=== PATIENT | female | born 1995 | race Hispanic/Latino ===

== ENCOUNTER 2017-06-16 09:00 | Emergency (ER) | payer SELFPAY ==
--- NOTE | 2017-06-16 09:26 | ER ---
Nurse's Notes [facility] Name: Tejas Tomlinson Age: 21 yrs Sex: Female : 1995 Arrival Date: 06/16/2017 Time: 09: Bed 13 Private MD: Diagnosis: Otitis media, unspecified, left ear Presentation: 06/16 09:09 Presenting complaint: Patient states: has had left ear pain since Tuesday. Transition of iw care: patient was not received from another setting of care. Onset of symptoms was June 11, 2017. Care prior to arrival: None. 09:09 Method Of Arrival: Ambulatory iw 09:09 Acuity: JONATAN 5 iw Triage Assessment: 09:30 General: Appears in no apparent distress. Behavior is calm, cooperative. 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 - Social history:: Smoking status: Patient/guardian denies using tobacco. Screenin:30 Abuse screen: Denies threats or abuse. Denies injuries from another. Nutritional iw screening: No deficits noted. Tuberculosis screening: No symptoms or risk factors identified. Fall Risk None identified. Assessment: 09:33 EENT: Reports pain in left ear. iw 09:33 General: Appears in no apparent distress. Behavior is calm, cooperative. Pain: iw Complains of pain in left ear. Neuro: Level of Consciousness is awake, alert, obeys commands, Oriented to person, place, time, situation, Moves all extremities. Full function. Respiratory: Respiratory effort is even, unlabored, Respiratory pattern is regular, symmetrical. Derm: Skin is pink, warm \T\ dry. normal. Vital Signs: 09:09 BP 144 / 99; Pulse 85; Resp 16; Temp 98.2; Pulse Ox 100% on R/A; Weight 136.53 kg; iw Height 5 ft. 2 in. (157.48 cm); Pain 10/10; 09:09 Body Mass Index 55.05 (136.53 kg, 157.48 cm) iw ED Course: 09:01 Patient arrived in ED. as 09:05 Terra Sparks FNP-C is [facility]. kb 09:05 Anthony Chester MD is Attending Physician. kb 09: Rosa Freitas, RN is Primary Nurse. iw 09: Triage completed. iw 09:30 Patient has correct armband on for positive identification. iw 09:30 No provider procedures requiring assistance completed. Patient did not have IV access iw during this emergency room visit. :33 Arm band placed on. iw Administered Medications: No medications were administered Outcome: : Discharge ordered by . kb :33 Discharged to home ambulatory. iw :33 Condition: good :33 Discharge instructions given to patient, Instructed on discharge instructions, follow up and referral plans. medication usage, Demonstrated understanding of instructions, follow-up care, medications, Prescriptions given X 1. :33 Patient left the ED. iw Signatures: Terra Sparks FNP-C SUPERINTENDENT [employer]-Ajayb Mercedes Hill as Rosa Freitas, RN RN iw Corrections: (The following items were deleted from the chart) 09:13 09:09 Pulse 85bpm; Resp 16bpm; Pulse Ox 100% RA; Temp 98.2F; 136.53 kg; Height 5 ft. 2 iw in.; BMI: 55.0; Pain 10/10; iw 11:24 09:33 EENT: No deficits noted. iw iw
--- NOTE | 2017-06-16 09:26 | EDPHYS ---
Physician Documentation [facility] Name: Tejas Tomlinson Age: 21 yrs Sex: Female : 1995 Arrival Date: 06/16/2017 Time: 09:01 Bed 13 Private MD: ED Physician Anthony Chester HPI: 06/16 09:22 This 21 yrs old Female presents to ER via Ambulatory with complaints of Ear kb Pain. 09:22 The patient presents with pain, that is acute. The complaints affect the right ear and kb left ear. Onset: The symptoms/episode began/occurred 7 day(s) ago. Modifying factors: The symptoms are alleviated by nothing, the symptoms are aggravated by touching. Associated signs and symptoms: The patient has no apparent associated signs or symptoms. Severity of symptoms: At their worst the symptoms were mild moderate in the emergency department the symptoms are unchanged. The patient has not experienced similar symptoms in the past. The patient has not recently seen a physician. 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 - Social history:: Smoking status: Patient/guardian denies using tobacco. ROS: 09:21 Constitutional: Negative for fever, chills, and weight loss, Cardiovascular: Negative kb for chest pain, palpitations, and edema, Respiratory: Negative for shortness of breath, cough, wheezing, and pleuritic chest pain, Abdomen/GI: Negative for abdominal pain, nausea, vomiting, diarrhea, and constipation, MS/Extremity: Negative for injury and deformity, Skin: Negative for injury, rash, and discoloration, Neuro: Negative for headache, weakness, numbness, tingling, and seizure. 09:21 ENT: Positive for ear pain. Exam: 09:21 Constitutional: This is a well developed, well nourished patient who is awake, alert, kb and in no acute distress. Head/Face: Normocephalic, atraumatic. Neck: Trachea midline, no thyromegaly or masses palpated, and no cervical lymphadenopathy. Supple, full range of motion without nuchal rigidity, or vertebral point tenderness. No Meningismus. Chest/axilla: Normal chest wall appearance and motion. Nontender with no deformity. No lesions are appreciated. Cardiovascular: Regular rate and rhythm with a normal S1 and S2. No gallops, murmurs, or rubs. Normal PMI, no JVD. No pulse deficits. Respiratory: Lungs have equal breath sounds bilaterally, clear to auscultation and percussion. No rales, rhonchi or wheezes noted. No increased work of breathing, no retractions or nasal flaring. Abdomen/GI: Soft, non-tender, with normal bowel sounds. No distension or tympany. No guarding or rebound. No evidence of tenderness throughout. Skin: Warm, dry with normal turgor. Normal color with no rashes, no lesions, and no evidence of cellulitis. MS/ Extremity: Pulses equal, no cyanosis. Neurovascular intact. Full, normal range of motion. Neuro: Awake and alert, GCS 15, oriented to person, place, time, and situation. Cranial nerves II-XII grossly intact. Motor strength 5/5 in all extremities. Sensory grossly intact. Cerebellar exam normal. Normal gait. 09:21 ENT: External ear(s): pain with movement, that is moderate, of the pinna of left ear and left ear lobe, Ear canal(s): are normal, TM's: bulging, on the left, erythema, that is moderate, on the left, Examination of the other ear shows no obvious abnormality, Nose: is normal, Mouth: is normal, Posterior pharynx: is normal. Vital Signs: 09:09 BP 144 / 99; Pulse 85; Resp 16; Temp 98.2; Pulse Ox 100% on R/A; Weight 136.53 kg; iw Height 5 ft. 2 in. (157.48 cm); Pain 10/10; 09:09 Body Mass Index 55.05 (136.53 kg, 157.48 cm) iw MDM: 09:05 Patient medically screened. kb 09:22 Data reviewed: vital signs, nurses notes. Data interpreted: Pulse oximetry: on room air kb is 100 %. Interpretation: normal. Counseling: I had a detailed discussion with the patient and/or guardian regarding: the historical points, exam findings, and any diagnostic results supporting the discharge/admit diagnosis, the need for outpatient follow up, a family practitioner, to return to the emergency department if symptoms worsen or persist or if there are any questions or concerns that arise at home. Administered Medications: No medications were administered Disposition: 06/17 07:48 Co-signature as Attending Physician, Anthony Chester MD I agree with the assessment and mo plan of care. Disposition: 06/16/17 09:25 Discharged to Home. Impression: Otitis media, unspecified, left ear. - Condition is Stable. - Discharge Instructions: Otitis Media, Adult, [id number]. - Prescriptions for Zithromax Z- Wilfredo 250 mg Oral Tablet - take 1 tablet by ORAL route as directed for 5 days Day 1 - take two (2) tablets one time. Day 2, 3, 4 , 5 take one (1) tablet once daily.; 6 tablet. - Medication Reconciliation Form, Thank You Letter, Antibiotic Education, Prescription Opioid Use form. - Follow up: Emergency Department; When: As needed; Reason: Worsening of condition. Follow up: Private Physician; When: 2 - 3 days; Reason: Recheck today's complaints, Continuance of care, Re-evaluation by your physician. Signatures: Terra Sparks, LAMAR-C LAMAR-Rosa Godoy RN RN iw [place], William, MD MD wa
[2017-06-16 09:37] VITALS: BP 144/99; TEMP 98.2; O2SAT 100
== END 2017-06-16 09:33 | disposition home or self-care (01) ==
LOC: ER 09:00
DX: H66.92 Otitis media, unspecified, left ear (principal); Z88.1 Allergy status to other antibiotic agents; Z88.3 Allergy status to other anti-infective agents
CPT/HCPCS: 99282

== ENCOUNTER 2017-08-02 08:50 | Emergency (ER) | payer SELFPAY ==
[2017-08-02 09:57] LABS: Absolute Lymphocytes (CBC) 3.1 K/uL (0.7-4.9); Absolute Monocytes 0.4 K/uL (0.1-1.3); Absolute Neutrophil 5.1 K/uL (1.8-8.0); BUN Blood Urea Nitrogen 7 mg/dL (6-20); Basophils % 0.6 % (0-1.3); Bicarbonate 24 mEq/L (21-31); Glucose Level 114 mg/dL (65-120); Lymphocytes % 35.3 % (15.3-44.8); MCH 25.6 pg (27.0-35.0); MCV 79.9 fL (80-100); MPV 10.6 fL (7.6-11.3); Monocytes % 4.9 % (3.3-12.3); Potassium 4.1 mEq/L (3.6-5.0); RBC Red Blood Cell Count 4.88 M/uL (3.86-4.86); Sodium Level 135 mEq/L (135-145)
--- NOTE | 2017-08-02 10:32 | RAD REPORT ---
EXAM DESCRIPTION: RAD - Chest Pa And Lat (2 Views) - 08/02/2017 9:54 am CLINICAL HISTORY: Right-sided chest and breast pain COMPARISON: January 2016 TECHNIQUE: PA and lateral views of the chest were obtained. Abdominal shielding utilized FINDINGS: The lungs are underinflated. No peripheral mass or consolidation. On the lateral view ther e is questionable increased opacification anterior base. This could be lingula or right middle lobe. Probability of pneumonia is felt to be low given the history of upper right chest pain. No abnormalit y seen on frontal projection. Heart size and vasculature within normal limits. Trachea is midline. Heart size is similar to compar melba. No pleural effusion or pneumothorax seen. No acute bony finding noted. No aortic abnormality. IMPRESSION: No definitive pneumonia and no failure, volume overload or other acute cardiopulmonary f inding. Subtle increased opacification anterior lung base on the lateral view is suspected to be summation artifact rather than anterior base pneumonia.
[2017-08-02 11:52] LABS: Urine Blood 3+ (NEG); Urine Glucose NEGATIVE (NEG); Urine Protein TRACE (NEG); Urine pH 6.5 (5.0-7.0)
--- NOTE | 2017-08-02 12:22 | RAD REPORT ---
EXAM DESCRIPTION: CT - Chest For Pe Angio - 08/02/2017 12:08 pm CLINICAL HISTORY: Chest pain, shortness of breath COMPARISON: Chest exam same date TECHNIQUE: Dynamically enhanced 3 mm thick images of the chest were obtained during administration o f approximately 150mL Isovue 370 IV contrast. Coronal and oblique reconstruction images were generate d and reviewed. Exam utilizes a protocol to evaluate the pulmonary arterial tree. All CT scans are performed using dose optimization technique as appropriate and may include automated exposure control or mA/KV adjustment according to patient size. FINDINGS: No pulmonary emboli are identified. The aorta as imaged shows no acute or suspicious finding. No pericardial thickening or effusion. No infiltrate or mass in the lung parenchyma. The subtle anterior lung base density seen on plain karie m was in fact a summation artifact. There is no pneumonia or acute lung parenchymal process. No pleur al effusion or pleural thickening. No mediastinal or hilar suspicious masses. No chest wall masses or abnormal axillary lymphadenopathy. IMPRESSION: No pulmonary emboli identified. No other significant or suspicious findings.
--- NOTE | 2017-08-02 12:31 | EDPHYS ---
Physician Documentation [facility] Name: Tejas Tomlinson Age: 21 yrs Sex: Female : 1995 Arrival Date: 08/02/2017 Time: 08:55 Bed 14 Private MD: None, None ED Physician Tomasz Romero HPI: 08/02 16:57 This 21 yrs old Female presents to ER via Ambulatory with complaints of Right gs side pain and numbness. 16:57 The patient or guardian reports chest pain that is located primarily in the anterior gs chest wall, right. The pain radiates to Associated signs and symptoms: Pertinent positives: shortness of breath, tingling r forearm dorsal lateral. The chest pain is described as sharp. Duration: The patient or guardian reports multiple episodes, that wax and wane, with no pattern. Modifying factors: the symptoms are aggravated by deep breath. Severity of pain: At its worst the pain was moderate in the emergency department the pain is unchanged. 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 - Social history:: Smoking status: Patient/guardian denies using tobacco. - Ebola Screening: : Patient negative for fever greater than or equal to 101.5 degrees Fahrenheit, and additional compatible Ebola Virus Disease symptoms. ROS: 16:57 All other systems are negative. gs Exam: 16:57 Head/Face: Normocephalic, atraumatic. Eyes: Pupils equal round and reactive to light, gs extra-ocular motions intact. Lids and lashes normal. Conjunctiva and sclera are non-icteric and not injected. Cornea within normal limits. Periorbital areas with no swelling, redness, or edema. ENT: Nares patent. No nasal discharge, no septal abnormalities noted. Tympanic membranes are normal and external auditory canals are clear. Oropharynx with no redness, swelling, or masses, exudates, or evidence of obstruction, uvula midline. Mucous membranes moist. Neck: Trachea midline, no thyromegaly or masses palpated, and no cervical lymphadenopathy. Supple, full range of motion without nuchal rigidity, or vertebral point tenderness. No Meningismus. Chest/axilla: Normal chest wall appearance and motion. Nontender with no deformity. No lesions are appreciated. Cardiovascular: Regular rate and rhythm with a normal S1 and S2. No gallops, murmurs, or rubs. Normal PMI, no JVD. No pulse deficits. Respiratory: Lungs have equal breath sounds bilaterally, clear to auscultation and percussion. No rales, rhonchi or wheezes noted. No increased work of breathing, no retractions or nasal flaring. Abdomen/GI: Soft, non-tender, with normal bowel sounds. No distension or tympany. No guarding or rebound. No evidence of tenderness throughout. Back: No spinal tenderness. No costovertebral tenderness. Full range of motion. Skin: Warm, dry with normal turgor. Normal color with no rashes, no lesions, and no evidence of cellulitis. MS/ Extremity: Pulses equal, no cyanosis. Neurovascular intact. Full, normal range of motion. 16:57 Constitutional: The patient appears alert, awake. 16:57 Neuro: Mentation: is normal, Cranial nerves: grossly normal, Cerebellar function: is grossly normal, Motor: is normal, Sensation: pin prick is decreased in the dorsal aspect of right forearm. Vital Signs: 09:02 BP 148 / 96; Pulse 77; Resp 16; Temp 98.1; Pulse Ox 100% on R/A; Weight 138.35 kg; hb Height 5 ft. 2 in. (157.48 cm); Pain 8/10; 10:00 BP 146 / 91; Pulse 78; Resp 18; Pulse Ox 99% on R/A; rb1 11:00 BP 143 / 89; Pulse 80; Resp 19; Pulse Ox 100% on R/A; rb1 12:00 rb1 13:00 BP 136 / 87; Pulse 82; Resp 17; Pulse Ox 99% on R/A; rb1 09:02 Body Mass Index 55.78 (138.35 kg, 157.48 cm) hb 12:[address] rb1 MDM: 09:14 Patient medically screened. 16:57 Differential diagnosis: pleurisy, pulmonary embolus, cerv radiculopathy, neuropathy. Data reviewed: vital signs, nurses notes. 08/02 09:16 Order name: CBC with Diff; Complete Time: 10:13 08/02 09:16 Order name: Basic Metabolic Panel; Complete Time: 10:13 08/02 09:16 Order name: XRAY Chest Pa And Lat (2 Views); Complete Time: 10:44 08/02 09:16 Order name: D-Dimer; Complete Time: 10:13 08/02 11:18 Order name: Urine Dipstick--Ancillary (enter results); Complete Time: 12:01 08/02 11:18 Order name: Urine --Ancillary (enter results); Complete Time: 12:01 08/02 09:16 Order name: EKG; Complete Time: 09:17 08/02 09:16 Order name: EKG - Nurse/Tech; Complete Time: 11:38 08/02 09:16 Order name: Urine Test (obtain specimen); Complete Time: 11:11 08/02 11:39 Order name: Chest For Pe Angio; Complete Time: 12:27 EDMS Administered Medications: No medications were administered Disposition: 08/02/17 12:30 Discharged to Home. Impression: Chest pain, unspecified, Paresthesia of skin. - Condition is Stable. - Discharge Instructions: Nonspecific Chest Pain, Paresthesia. - Work release form, Medication Reconciliation Form, Thank You Letter, Antibiotic Education, Prescription Opioid Use form. - Follow up: Private Physician; When: 2 - 3 days; Reason: Re-evaluation by your physician. Signatures: Dispatcher [employer] [facility] Carmencita Sung RN RN rb1 Bridgette Marie RN RN Tomasz Romero MD MD Corrections: (The following items were deleted from the chart) 11:38 10:45 Chest Angio+CT.RAD.BRZ ordered. [facility] 13:25 12:30 08/02/2017 12:30 Discharged to Home. Impression: Chest pain, unspecified; rb1 Paresthesia of skin. Condition is Stable. Forms are Medication Reconciliation Form, Thank You Letter, Antibiotic Education, Prescription Opioid Use. Follow up: Private Physician; When: 2 - 3 days; Reason: Re-evaluation by your physician.
--- NOTE | 2017-08-02 12:31 | ER ---
Nurse's Notes [facility] Name: Tejas Tomlinson Age: 21 yrs Sex: Female : 1995 Arrival Date: 08/02/2017 Time: 08:55 Bed 14 Private MD: None, None Diagnosis: Chest pain, unspecified;Paresthesia of skin Presentation: 08/02 08:59 Presenting complaint: Patient states: Last night I had a pain that started in my right hb upper chest and it radiates down into my right breast, then this morning my right arm and right right leg feel numb. - facial droop, - slurred speech, bilateral market master strong and equal. Ambulated to triage with steady gait. Transition of care: patient was not received from another setting of care. Onset of symptoms was August 01, 2017 at 19:30. Care prior to arrival: None. 08:59 Method Of Arrival: Ambulatory hb 08:59 Acuity: JONATAN 3 hb 09:05 Risk Assessment: Do you want to hurt yourself or someone else? Patient reports no rb1 desire to harm self or others. Initial Sepsis Screen: Does the patient meet any 2 criteria? No. Patient's initial sepsis screen is negative. Does the patient have a suspected source of infection? No. Patient's initial sepsis screen is negative. 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 - Social history:: Smoking status: Patient/guardian denies using tobacco. - Ebola Screening: : Patient negative for fever greater than or equal to 101.5 degrees Fahrenheit, and additional compatible Ebola Virus Disease symptoms. Screenin:05 Abuse screen: Denies threats or abuse. Nutritional screening: No deficits noted. rb1 Tuberculosis screening: No symptoms or risk factors identified. Fall Risk None identified. Assessment: 09:05 General: Appears in no apparent distress. comfortable, obese, Behavior is calm, rb1 cooperative, Denies fever. Pain: Complains of pain in anterior aspect of right upper chest Pain currently is 8 out of 10 on a pain scale. Neuro: Level of Consciousness is awake, alert, obeys commands, Oriented to person, place, time, situation, Reports numbness in right arm. Neuro: Benzene Worker are equal bilaterally Moves all extremities. Gait is steady, Speech is normal, Facial symmetry appears normal, Pupils are PERRLA. Cardiovascular: Capillary refill < 3 seconds is brisk in bilateral fingers. Respiratory: Airway is patent Respiratory effort is even, unlabored, Respiratory pattern is regular, symmetrical. GI: No signs and/or symptoms were reported involving the gastrointestinal system. : No signs and/or symptoms were reported regarding the genitourinary system. Derm: Skin is pink, warm \T\ dry. Musculoskeletal: Range of motion: intact in all extremities. 10:00 Reassessment: Patient appears in no apparent distress at this time. No changes from rb1 previously documented assessment. Family at bedside. 11:00 Reassessment: Patient appears in no apparent distress at this time. Patient and/or rb1 family updated on plan of care and expected duration. Pain level reassessed. Patient is alert, oriented x 3, equal unlabored respirations, skin warm/dry/pink. Pt. was updated on POC. 11:41 Reassessment: KRYSTA Escalante went to CT to start a new IV. rb1 12:09 Reassessment: Patient appears in no apparent distress at this time. Patient and/or rb1 family updated on plan of care and expected duration. Pain level reassessed. Patient is alert, oriented x 3, equal unlabored respirations, skin warm/dry/pink. 13:00 Reassessment: Patient appears in no apparent distress at this time. No changes from rb1 previously documented assessment. Family at bedside. Vital Signs: 09:02 BP 148 / 96; Pulse 77; Resp 16; Temp 98.1; Pulse Ox 100% on R/A; Weight 138.35 kg; hb Height 5 ft. 2 in. (157.48 cm); Pain 8/10; 10:00 BP 146 / 91; Pulse 78; Resp 18; Pulse Ox 99% on R/A; rb1 11:00 BP 143 / 89; Pulse 80; Resp 19; Pulse Ox 100% on R/A; rb1 12:00 rb1 13:00 BP 136 / 87; Pulse 82; Resp 17; Pulse Ox 99% on R/A; rb1 09:02 Body Mass Index 55.78 (138.35 kg, 157.48 cm) hb 12:[address] [facility] ED Course: 08:55 Patient arrived in ED. sb2 08:56 None, None is Private Physician. sb2 09:02 Triage completed. hb 09:02 Arm band placed on right wrist. hb 09:04 Tomasz Romero MD is Attending Physician. gs 09:05 Patient has correct armband on for positive identification. Placed in gown. Bed in low rb1 position. Call light in reach. Side rails up X 1. Adult w/ patient. Pulse ox on. NIBP on. 09:25 Carmencita Sung, RN is Primary Nurse. rb1 09:35 Inserted saline lock: 22 gauge in left forearm, using aseptic technique. ,using aseptic rb1 technique. IV inserted by ESTELLE Bailey Blood collected. 09:45 Patient moved to radiology via wheelchair. jb2 09:51 X-ray completed. Patient tolerated procedure well. Patient moved back from radiology. jb2 09:51 XRAY Chest Pa And Lat (2 Views) In Process Unspecified. EDMS 10:14 EKG done, by environmental health technician. reviewed by Tomasz Romero MD. tc 11:10 Urine collected: clean catch specimen, cloudy, tin colored. dh3 11:53 Inserted saline lock: 20 gauge in left antecubital area, using aseptic technique. ss 12:08 Chest For Pe Angio In Process Unspecified. EDMS 13:24 No provider procedures requiring assistance completed. IV discontinued, intact, rb1 bleeding controlled, No redness/swelling at site. Pressure dressing applied. Administered Medications: No medications were administered Outcome: 12:30 Discharge ordered by . 13:24 Discharged to home ambulatory, with family. rb1 13:24 Condition: stable 13:24 Discharge instructions given to patient, Instructed on discharge instructions, follow up and referral plans. Demonstrated understanding of instructions, follow-up care, Prescriptions given X none 13:25 Patient left the ED. rb1 Signatures: Dispatcher [employer] EDMS Yuri Villaseñor jb2 Ava Sinclair RN RN Mónica Carranza, soda column operator EKG Ttc Carmencita Sung, ESTELLE MCCABE rb1 Bridgette Marie RN RN Rich, Antonietta 3 Tomasz Romero MD MD Pamela Eldridge sb2
[2017-08-02 13:29] VITALS: TEMP 98.1
[2017-08-02 13:33] VITALS: BP 136/87; O2SAT 99
--- NOTE | 2017-08-02 15:01 | EKG ---
Test Date: 2017-08-02 Test Time: 10:06:37 Autocad: SHOLA/ MEASUREMENT RESULTS: Intervals: Rate: 72 KS: 134 QRSD: 76 QT: 386 QTc: 422 [place]: P: 23 KS: 134 QRS: 56 T: 5 INTERPRETIVE STATEMENTS: Normal sinus rhythm Normal ECG Compared to ECG 06/11/2010 21:41:54 No significant changes Electronically Signed On 08-02-17 14:59:03 CDT by Kofi Cornell
== END 2017-08-02 13:25 | disposition home or self-care (01) ==
LOC: ER 08:50
DX: R20.2 Paresthesia of skin (principal); Z88.1 Allergy status to other antibiotic agents
CPT/HCPCS: 36415; 71046; 71275; 80048; 81003; 81025; 85025; 85379; 93005; 99284; Q9967

== ENCOUNTER 2017-08-14 23:28 | Emergency (ER) | payer SELFPAY ==
[2017-08-14] MEDS ORDERED: ACETAMINOPHEN 500 MG TAB ONE (23:59)
[2017-08-14] MEDS ORDERED: NA CHLORIDE 0.9% 1,000 ML ONE (23:59)
[2017-08-15] MEDS ORDERED: ONDANSETRON 4 MG/2 ML VIAL ONE (00:01)
[2017-08-15 00:59] LABS: Absolute Lymphocytes (CBC) 2.1 K/uL (0.7-4.9); Absolute Monocytes 0.7 K/uL (0.1-1.3); Absolute Neutrophil 9.8 K/uL (1.8-8.0); Basophils % 0.3 % (0-1.3); Eosinophils % 0.2 % (0-4.4); Hematocrit 37.3 % (36.0-45.0); Lymphocytes % 16.3 % (15.3-44.8); MCH 25.7 pg (27.0-35.0); MCV 80.1 fL (80-100); MPV 10.2 fL (7.6-11.3); Monocytes % 5.3 % (3.3-12.3); RBC Red Blood Cell Count 4.66 M/uL (3.86-4.86)
[2017-08-15 01:13] LABS: Potassium 3.6 mEq/L (3.6-5.0)
--- NOTE | 2017-08-15 02:02 | EDPHYS ---
Physician Documentation [facility] Name: Tejas Tomlinson Age: 21 yrs Sex: Female : 1995 Arrival Date: 08/14/2017 Time: 23:29 Bed 30 Private MD: ED Physician Tenzin Castillo HPI: 08/14 23:52 This 21 yrs old Female presents to ER via Ambulatory with complaints of Fever. pkl 23:52 The patient presents with sore throat. The patient describes throat pain as constant. pkl Onset: The symptoms/episode began/occurred 4 day(s) ago. Associated signs and symptoms: Pertinent positives: fever, nausea, vomiting. 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 - Social history:: Smoking status: Patient/guardian denies using tobacco. - Ebola Screening: : Patient denies exposure to infectious person Patient denies travel to an Ebola-affected area in the 21 days before illness onset. ROS: 23:52 Eyes: Negative for injury, pain, redness, and discharge. pkl 23:52 ENT: Positive for sore throat. 23:52 Neck: Negative for stiffness. 23:52 Cardiovascular: Negative for chest pain. 23:52 Respiratory: Positive for cough, Negative for shortness of breath. 23:52 Abdomen/GI: Positive for nausea and vomiting. 23:52 Back: Negative for acute changes. 23:52 : Negative for urinary symptoms. 23:52 MS/extremity: Negative for acute changes. 23:52 Skin: Negative for rash. 23:52 Neuro: Positive for 23:52 Neuro: Negative for altered mental status. Exam: 23:52 Head/Face: Normocephalic, atraumatic. Eyes: Pupils equal round and reactive to light, pkl extra-ocular motions intact. Lids and lashes normal. Conjunctiva and sclera are non-icteric and not injected. Cornea within normal limits. Periorbital areas with no swelling, redness, or edema. 23:52 ENT: Posterior pharynx: Tonsils: bilaterally enlarged, with exudate. 23:52 Neck: Exam negative for nuchal rigidity. 23:52 Chest/axilla: Exam negative for acute changes. 23:52 Cardiovascular: Rate: tachycardic, actual rate is 123 bpm, Rhythm: regular. 23:52 Respiratory: the patient does not display signs of respiratory distress, Respirations: normal, Breath sounds: are clear throughout. 23:52 Abdomen/GI: Bowel sounds: normal, Palpation: abdomen is soft and non-tender, in all quadrants. 23:52 Back: Exam negative for acute changes. 23:52 : Exam negative for acute changes. 23:52 Musculoskeletal/extremity: Exam is negative for acute changes. 23:52 Skin: Exam negative for rash. 23:52 Neuro: Orientation: is normal, Mentation: is normal, Cranial nerves: grossly normal, Motor: is normal. Vital Signs: 23:43 BP 143 / 88; Pulse 123; Resp 20; Temp 101.0(O); Pulse Ox 97% on R/A; Weight 136.08 kg aa1 (R); Height 5 ft. 2 in. (157.48 cm); Pain 12/14; 08/15 00:45 BP 144 / 74; Pulse 94; Resp 18; Pulse Ox 98% on R/A; rk2 02:13 BP 126 / 90; Pulse 85; Resp 17; Temp 99.1(O); Pulse Ox 99% on R/A; rk2 08/14 23:43 Body Mass Index 54.87 (136.08 kg, 157.48 cm) aa1 MDM: 08/14 23:31 Patient medically screened. pkl 08/15 02:00 Data reviewed: vital signs, nurses notes, lab test result(s). pkl 08/14 23:51 Order name: CBC with Diff; Complete Time: 01:14 pkl 08/14 23:51 Order name: Chem 7; Complete Time: 01:15 pkl 08/14 23:51 Order name: Strep; Complete Time: 01:14 pkl 08/15 01:08 Order name: Throat Culture EDSD 08/15 01:15 Order name: [place] Screen Profile; Complete Time: 01:59 pkl Administered Medications: 00:11 Drug: Tylenol 1000 mg Route: PO; rk2 00:50 Follow up: Response: No adverse reaction rk2 00:12 Drug: NS 0.9% 1000 ml Route: IV; Rate: 1000 ml; Site: right antecubital; rk2 01:00 Follow up: Response: No adverse reaction; IV Status: Completed infusion rk2 00:12 Drug: Zofran 4 mg Route: IVP; Site: right antecubital; rk2 00:50 Follow up: Response: No adverse reaction rk2 02:08 Drug: Clindamycin 900 mg Route: IVPB; Infused Over: 30 mins; Site: right antecubital; rk2 02:34 Follow up: Response: No adverse reaction; IV Status: Completed infusion rk2 Disposition: 08/15/17 02:02 Discharged to Home. Impression: Acute tonsillitis. R/O right tonsillar abscess. - Condition is Stable. - Prescriptions for Clindamycin HCl 300 mg Oral Capsule - take 1 capsule by ORAL route every 6 hours for 7 days; 28 capsule. - Medication Reconciliation Form, Thank You Letter, Antibiotic Education, Prescription Opioid Use form. - Follow up: Mandy Villanueva MD; When: 1 - 2 days; Reason: Re-evaluation by your physician. - Problem is new. - Symptoms are unchanged. Signatures: Dispatcher [employer] EDMS Yaima Westfall RN RN aa1 Tenzin Castillo MD MD pkl Monalisa Clancy RN RN rk2 Corrections: (The following items were deleted from the chart) 02:35 02:02 08/15/2017 02:02 Discharged to Home. Impression: Acute tonsillitis. R/O right rk2 tonsillar abscess. Condition is Stable. Forms are Medication Reconciliation Form, Thank You Letter, Antibiotic Education, Prescription Opioid Use. Follow up: Mandy Villanueva; When: 1 - 2 days; Reason: Re-evaluation by your physician. Problem is new. Symptoms are unchanged. pkl
--- NOTE | 2017-08-15 02:02 | ER ---
Nurse's Notes [facility] Name: Tejas Tomlinson Age: 21 yrs Sex: Female : 1995 Arrival Date: 08/14/2017 Time: 23:29 Bed 30 Private MD: Diagnosis: Acute tonsillitis. R/O right tonsillar abscess Presentation: 08/14 23:42 Presenting complaint: Patient states: fever, sore throat, \T\ N/V x 4 days. Transition of aa1 care: patient was not received from another setting of care. Onset of symptoms was August 11, 2017. Risk Assessment: Do you want to hurt yourself or someone else? Patient reports no desire to harm self or others. Initial Sepsis Screen: Does the patient meet any 2 criteria? Yes Does the patient have a suspected source of infection? No. Patient's initial sepsis screen is negative. Care prior to arrival: None. 23:42 Method Of Arrival: Ambulatory aa1 23:42 Acuity: JONATAN 3 aa1 Triage Assessment: 23:43 General: Appears in no apparent distress. comfortable, Behavior is calm, cooperative, aa1 appropriate for age. 08/15 00:00 Pain: Complains of pain in throat. rk2 00:00 EENT: Throat is reddened. Neuro: Level of Consciousness is alert, obeys commands, rk2 Oriented to person, place, time, situation. Respiratory: No deficits noted. Airway is patent Respiratory effort is even, unlabored, Respiratory pattern is regular, symmetrical. Derm: Skin is pink, warm \T\ dry. 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 - Social history:: Smoking status: Patient/guardian denies using tobacco. - Ebola Screening: : Patient denies exposure to infectious person Patient denies travel to an Ebola-affected area in the 21 days before illness onset. Screenin/11 00:00 Abuse screen: Denies threats or abuse. rk2 00:00 Nutritional screening: No deficits noted. Tuberculosis screening: No symptoms or risk rk2 factors identified. Fall Risk None identified. Assessment: 01:31 Reassessment: Patient appears in no apparent distress at this time. No changes from rk2 previously documented assessment. Patient and/or family updated on plan of care and expected duration. Pain level reassessed. No needs voiced \T\ this time. Vital Signs: 08/14 23:43 BP 143 / 88; Pulse 123; Resp 20; Temp 101.0(O); Pulse Ox 97% on R/A; Weight 136.08 kg aa1 (R); Height 5 ft. 2 in. (157.48 cm); Pain 12/14; 08/15 00:45 BP 144 / 74; Pulse 94; Resp 18; Pulse Ox 98% on R/A; rk2 02:13 BP 126 / 90; Pulse 85; Resp 17; Temp 99.1(O); Pulse Ox 99% on R/A; rk2 08/14 23:43 Body Mass Index 54.87 (136.08 kg, 157.48 cm) aa1 ED Course: 08/14 23:29 Patient arrived in ED. ds1 23:31 Tenzin Castillo MD is Attending Physician. pkl 23:43 Triage completed. aa1 23:43 Arm band placed on right wrist. Patient placed in an exam room, on a stretcher. aa1 23:46 Monalisa Clancy, ESTELLE is Primary Nurse. rk2 08/15 00:00 Patient has correct armband on for positive identification. Bed in low position. Call rk2 light in reach. 01:30 [place] Screen Profile Sent. rk2 02:01 Mandy Villanueva MD is Referral Physician. pkl 02:35 No provider procedures requiring assistance completed. IV discontinued. rk2 Administered Medications: 00:11 Drug: Tylenol 1000 mg Route: PO; rk2 00:50 Follow up: Response: No adverse reaction rk2 00:12 Drug: NS 0.9% 1000 ml Route: IV; Rate: 1000 ml; Site: right antecubital; rk2 01:00 Follow up: Response: No adverse reaction; IV Status: Completed infusion rk2 00:12 Drug: Zofran 4 mg Route: IVP; Site: right antecubital; rk2 00:50 Follow up: Response: No adverse reaction rk2 02:08 Drug: Clindamycin 900 mg Route: IVPB; Infused Over: 30 mins; Site: right antecubital; rk2 02:34 Follow up: Response: No adverse reaction; IV Status: Completed infusion rk2 Outcome: 02:02 Discharge ordered by . jb 02:35 Discharged to home ambulatory. rk2 02:35 Condition: good 02:35 Discharge instructions given to patient, Prescriptions given X 1. 02:35 Patient left the ED. rk2 Signatures: Yaima Westfall RN RN aa1 Tenzin Castillo MD MD pkJacki Yang ds1 Monalisa Clancy RN RN rk2
[2017-08-15] MEDS ORDERED: CLINDAMYCIN 900MG/D5W 900 MG/50 ML BAG IV ONE (02:06)
[2017-08-15 03:04] VITALS: BP 126/90; TEMP 99.1; O2SAT 99
== END 2017-08-15 02:35 | disposition home or self-care (01) ==
LOC: ER 23:28
DX: J03.90 Acute tonsillitis, unspecified (principal); Z88.1 Allergy status to other antibiotic agents
CPT/HCPCS: 36415; 80048; 85025; 86308; 87070; 87081; 96361; 96365; 96375; 99283; J2405; J7030

== ENCOUNTER 2017-11-22 19:11 | Emergency (ER) | payer SELFPAY ==
[2017-11-22 19:53] LABS: Urine Blood NEGATIVE (NEG); Urine Glucose NEGATIVE (NEG); Urine Protein NEGATIVE (NEG); Urine Specific Gravity 1.025 (1.005-1.030)
--- NOTE | 2017-11-22 20:20 | RAD REPORT ---
EXAM DESCRIPTION: RAD - Chest Pa And Lat (2 Views) - 11/22/2017 8:10 pm CLINICAL HISTORY: Cough, fever COMPARISON: August 02 TECHNIQUE: PA and lateral views of the chest were obtained. FINDINGS: The lungs are underinflated. No acute lung parenchymal finding. No failure or volume overl oad. Heart size is normal and central vasculature is within normal limits. No pleural effusion or pneumothorax seen. No acute bony finding noted. No aortic abnormality. IMPRESSION: No acute cardiopulmonary process. No significant change from comparison.
--- NOTE | 2017-11-22 21:05 | EDPHYS ---
Physician Documentation [facility] Name: Tejas Tomlinson Age: 22 yrs Sex: Female : 1995 Arrival Date: 11/22/2017 Time: 19:12 Bed 27 Private MD: ED Physician Fabio Davalos HPI: 11/23 04:29 This 22 yrs old Female presents to ER via Ambulatory with complaints of Sore pm1 Throat, cough. 04:29 The patient presents with sore throat. The patient describes throat pain as pm1 intermittent. Onset: The symptoms/episode began/occurred 2 day(s) ago. Severity of symptoms: in the emergency department the symptoms are unchanged. 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 Associated signs and symptoms: Pertinent positives: chills, Pertinent negatives fever. The patient has not recently seen a physician. 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 - Social history:: Smoking status: Patient/guardian denies using tobacco. - Ebola Screening: : Patient denies travel to an Ebola-affected area in the 21 days before illness onset. ROS: 11/23 04:29 Constitutional: Negative for fever, chills, and weight loss, Eyes: Negative for injury, pm1 pain, redness, and discharge. Neck: Negative for injury, pain, and swelling. Abdomen/GI: Negative for abdominal pain, nausea, vomiting, diarrhea, and constipation, Back: Negative for injury and pain, : Negative for injury, bleeding, discharge, and swelling, MS/Extremity: Negative for injury and deformity, Skin: Negative for injury, rash, and discoloration, Neuro: Negative for headache, weakness, numbness, tingling, and seizure. ENT: Positive for sore throat, Negative for drainage from ear(s), ear pain. Cardiovascular: Positive for chest pain, with cough, Negative for edema, orthopnea, palpitations. Respiratory: Positive for cough, Negative for shortness of breath, sputum production. Exam: 04:29 Constitutional: This is a well developed, well nourished patient who is awake, alert, pm1 and in no acute distress. Head/Face: Normocephalic, atraumatic. Eyes: Pupils equal round and reactive to light, extra-ocular motions intact. Lids and lashes normal. Conjunctiva and sclera are non-icteric and not injected. Cornea within normal limits. Periorbital areas with no swelling, redness, or edema. ENT: Nares patent. No nasal discharge, no septal abnormalities noted. Tympanic membranes are normal and external auditory canals are clear. Oropharynx with no redness, swelling, or masses, exudates, or evidence of obstruction, uvula midline. Mucous membranes moist. Neck: Trachea midline, no thyromegaly or masses palpated, and no cervical lymphadenopathy. Supple, full range of motion without nuchal rigidity, or vertebral point tenderness. No Meningismus. Chest/axilla: Normal chest wall appearance and motion. Nontender with no deformity. No lesions are appreciated. Cardiovascular: Regular rate and rhythm with a normal S1 and S2. No gallops, murmurs, or rubs. Normal PMI, no JVD. No pulse deficits. Respiratory: Lungs have equal breath sounds bilaterally, clear to auscultation and percussion. No rales, rhonchi or wheezes noted. No increased work of breathing, no retractions or nasal flaring. Abdomen/GI: Soft, non-tender, with normal bowel sounds. No distension or tympany. No guarding or rebound. No evidence of tenderness throughout. Back: No spinal tenderness. No costovertebral tenderness. Full range of motion. Skin: Warm, dry with normal turgor. Normal color with no rashes, no lesions, and no evidence of cellulitis. MS/ Extremity: Pulses equal, no cyanosis. Neurovascular intact. Full, normal range of motion. 04:29 Neuro: Orientation: is normal, Motor: moves all fours. Vital Signs: 11/22 19:23 BP 133 / 90; Pulse 92; Resp 20; Temp 97.4(TE); Pulse Ox 98% on R/A; Weight 127.01 kg aj1 (R); Height 5 ft. 2 in. (157.48 cm) (R); Pain 9/10; 21:00 BP 132 / 88; Pulse 90; Resp 20; Pulse Ox 98% on R/A; kr2 19:23 Body Mass Index 51.21 (127.01 kg, 157.48 cm) aj1 MDM: 19:42 Patient medically screened. pm1 21:03 Data reviewed: vital signs. Data interpreted: Pulse oximetry: on room air is 98 %. pm1 Interpretation: normal. Counseling: I had a detailed discussion with the patient and/or guardian regarding: the historical points, exam findings, and any diagnostic results supporting the discharge/admit diagnosis, lab results, radiology results, the need for outpatient follow up, to return to the emergency department if symptoms worsen or persist or if there are any questions or concerns that arise at home. 11/22 19:43 Order name: Flu; Complete Time: 21:03 pm1 11/22 19:43 Order name: Strep; Complete Time: 21:03 pm1 11/22 19:46 Order name: Chest Pa And Lat (2 Views) XRAY; Complete Time: 20:30 pm1 11/22 19:49 Order name: Urine --Ancillary (enter results); Complete Time: 20:30 ds4 11/22 19:49 Order name: Urine Dipstick--Ancillary (enter results); Complete Time: 20:30 ds4 11/22 20:49 Order name: Throat Culture EDOK 11/22 19:46 Order name: Urine Dipstick-Ancillary (obtain specimen); Complete Time: 19:48 pm1 11/22 19:46 Order name: Urine Test (obtain specimen); Complete Time: 19:48 pm1 Administered Medications: No medications were administered Disposition: 22:00 Co-signature as Attending Physician, Fabio Davalos MD I agree with the assessment and kdr plan of care. Disposition: 11/22/17 21:04 Discharged to Home. Impression: Acute upper respiratory infection, unspecified. - Condition is Stable. - Discharge Instructions: Upper Respiratory Infection, Adult, Viral Respiratory Infection. - Prescriptions for Tessalon Perles 100 mg Oral Capsule - take 1 capsule by ORAL route every 8 hours As needed; 15 capsule. - Work release form, Medication Reconciliation Form, Thank You Letter, Antibiotic Education, Prescription Opioid Use form. - Follow up: Emergency Department; When: As needed; Reason: Worsening of condition. Follow up: Private Physician; When: 2 - 3 days; Reason: Recheck today's complaints, Continuance of care, Re-evaluation by your physician. - Problem is new. - Symptoms have improved. Signatures: Dispatcher [employer] EDMS Kirstin Griffith RN RN aj1 Fabio Davalos MD MD kdr Pena, Laura, RN RN lp1 Joe Donaldson CHAIN MORTISER OPERATOR CHAIN MORTISER OPERATOR pm1 Corrections: (The following items were deleted from the chart) 21:24 21:04 11/22/2017 21:04 Discharged to Home. Impression: Acute upper respiratory lp1 infection, unspecified. Condition is Stable. Forms are Medication Reconciliation Form, Thank You Letter, Antibiotic Education, Prescription Opioid Use. Follow up: Emergency Department; When: As needed; Reason: Worsening of condition. Follow up: Private Physician; When: 2 - 3 days; Reason: Recheck today's complaints, Continuance of care, Re-evaluation by your physician. Problem is new. Symptoms have improved. pm1
--- NOTE | 2017-11-22 21:05 | ER ---
Nurse's Notes [facility] Name: Tejas Tomlinson Age: 22 yrs Sex: Female : 1995 Arrival Date: 11/22/2017 Time: 19:12 Bed 27 Private MD: Diagnosis: Acute upper respiratory infection, unspecified Presentation: 11/22 19:19 Presenting complaint: Patient states: Sore throat, cough, and low grade fever for the aj1 past 2 days. Reports chest pain when she coughs or takes a deep breath. 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 Transition of care: patient was not received from another setting of care. Onset of symptoms was November 20, 2017. Risk Assessment: Do you want to hurt yourself or someone else? Patient reports no desire to harm self or others. Initial Sepsis Screen: Does the patient meet any 2 criteria? No. Patient's initial sepsis screen is negative. Does the patient have a suspected source of infection? No. Patient's initial sepsis screen is negative. Care prior to arrival: None. 19:19 Method Of Arrival: Ambulatory aj1 19:19 Acuity: JONATAN 4 aj1 Triage Assessment: 19:23 General: Appears in no apparent distress. comfortable, Behavior is calm, cooperative, aj1 appropriate for age. Pain: Complains of pain in mid-sternal area, left aspect of posterior pharynx and right aspect of posterior pharynx Pain does not radiate. Pain currently is 9 out of 10 on a pain scale. Quality of pain is described as heavy. EENT: Reports sore throat . Denies nasal congestion, nasal discharge. Neuro: Level of Consciousness is awake, alert, obeys commands. Cardiovascular: Reports chest pain, shortness of breath, Patient's skin is warm and dry. Rhythm is regular. Respiratory: Reports cough that is non-productive, persistent Airway is patent Respiratory effort is even, unlabored, Respiratory pattern is regular, symmetrical, the patient has mild shortness of breath. GI: No signs and/or symptoms were reported involving the gastrointestinal system. Patient currently denies diarrhea, nausea, vomiting. : No signs and/or symptoms were reported regarding the genitourinary system. Denies burning with urination. Derm: No signs and/or symptoms reported regarding the dermatologic system. Skin is pink, warm \\T\\ dry. normal. Musculoskeletal: No signs and/or symptoms reported regarding the musculoskeletal system. Circulation, motion, and sensation intact. 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 - Social history:: Smoking status: Patient/guardian denies using tobacco. - Ebola Screening: : Patient denies travel to an Ebola-affected area in the 21 days before illness onset. Screenin:23 Abuse screen: Denies threats or abuse. Denies injuries from another. Nutritional lp1 screening: No deficits noted. Tuberculosis screening: No symptoms or risk factors identified. Fall Risk None identified. Assessment: 19:30 General: Appears in no apparent distress. comfortable, well groomed, Behavior is calm, kr2 cooperative, appropriate for age. Pain: Denies pain. Neuro: Level of Consciousness is awake, alert, obeys commands. Cardiovascular: Capillary refill < 3 seconds in bilateral fingers Patient's skin is warm and dry. Respiratory: Airway is patent Respiratory effort is even, unlabored, Respiratory pattern is regular, symmetrical, Breath sounds are clear bilaterally. Respiratory: Reports cough that is non-productive. GI: Abdomen is flat, non-distended. EENT: Throat is pink. EENT: Reports nasal congestion. Derm: Skin is intact, is healthy with good turgor, Skin is pink, warm \\T\\ dry. 21:23 General: Appears in no apparent distress. Neuro: Level of Consciousness is awake, lp1 alert, obeys commands. Respiratory: Respiratory effort is even. Respiratory: Reports cough that is. EENT: Reports pain when swallowing. Vital Signs: 19:23 BP 133 / 90; Pulse 92; Resp 20; Temp 97.4(TE); Pulse Ox 98% on R/A; Weight 127.01 kg aj1 (R); Height 5 ft. 2 in. (157.48 cm) (R); Pain 9/10; 21:00 BP 132 / 88; Pulse 90; Resp 20; Pulse Ox 98% on R/A; kr2 19:23 Body Mass Index 51.21 (127.01 kg, 157.48 cm) aj1 ED Course: 19:12 Patient arrived in ED. es 19:23 Triage completed. aj1 19:23 Arm band placed on. aj1 19:32 Joe Donaldson NP is PHCP. pm1 19:32 Fabio Davalos MD is Attending Physician. pm1 19:46 Eunice Whalen, RN is Primary Nurse. kr2 20:10 Chest Pa And Lat (2 Views) XRAY In Process Unspecified. EDMS 21:23 Patient has correct armband on for positive identification. lp1 21:23 No provider procedures requiring assistance completed. Patient did not have IV access lp1 during this emergency room visit. Administered Medications: No medications were administered Outcome: 21:04 Discharge ordered by . pm1 21:22 Discharged to home ambulatory, with family. lp1 21:22 Condition: good 21:22 Discharge instructions given to patient, Instructed on discharge instructions, follow up and referral plans. medication usage, Demonstrated understanding of instructions, follow-up care, medications, Prescriptions given X 1. 21:24 Patient left the ED. lp1 Signatures: Dispatcher [employer] Kirstin Knight, ESTELLE RN aj1 Lidia Bueno Laura, RN RN lp1 Joe Donaldson, DYLON AIRPORT CLERK pm1 Eunice Whalen, RN RN kr2
[2017-11-22 21:28] VITALS: BP 133/90; TEMP 97.4; O2SAT 98
== END 2017-11-22 21:24 | disposition home or self-care (01) ==
LOC: ER 19:11
DX: J06.9 Acute upper respiratory infection, unspecified (principal); Z88.1 Allergy status to other antibiotic agents
CPT/HCPCS: 71046; 81003; 81025; 87070; 87081; 87804; 99283

== ENCOUNTER 2018-02-01 13:55 | Emergency (ER) | payer SELFPAY ==
[2018-02-01] MEDS ORDERED: MORPHINE 2 MG/ML SYR ONE (15:40)
[2018-02-01] MEDS ORDERED: NA CHLORIDE 0.9% 1,000 ML ONE (15:40)
[2018-02-01] MEDS ORDERED: ONDANSETRON 4 MG/2 ML VIAL ONE (15:40)
--- NOTE | 2018-02-01 15:45 | ER ---
Nurse's Notes [facility] Name: Tejas Tomlinson Age: 22 yrs Sex: Female : 1995 Arrival Date: 02/01/2018 Time: 14:02 Bed 11 Private MD: None, None Diagnosis: Pain in right knee Presentation: 02/01 14:05 Presenting complaint: Patient states: Right knee pain for 2 week when kneeling or aj squatting. Ambulated to triage with steady gait. Transition of care: patient was not received from another setting of care. Onset of symptoms was January 18, 2018. Risk Assessment: Do you want to hurt yourself or someone else? Patient reports no desire to harm self or others. Initial Sepsis Screen: Does the patient meet any 2 criteria? No. Patient's initial sepsis screen is negative. Does the patient have a suspected source of infection? No. Patient's initial sepsis screen is negative. Care prior to arrival: None. 14:05 Method Of Arrival: Ambulatory aj 14:05 Acuity: JONATAN 4 aj Triage Assessment: 14:07 General: Appears in no apparent distress. comfortable, Behavior is calm, cooperative, aj appropriate for age. Pain: Complains of pain in right knee. Neuro: Level of Consciousness is awake, alert, obeys commands, Oriented to person, place, time, situation, Appropriate for age. Respiratory: Airway is patent Respiratory effort is even, unlabored, Respiratory pattern is regular, symmetrical. Derm: Skin is intact, is healthy with good turgor, Skin is pink, warm \T\ dry. normal. Musculoskeletal: Reports pain in right knee. 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 - Social history:: Smoking status: Patient/guardian denies using tobacco. - Ebola Screening: : Patient negative for fever greater than or equal to 101.5 degrees Fahrenheit, and additional compatible Ebola Virus Disease symptoms Patient denies exposure to infectious person Patient denies travel to an Ebola-affected area in the 21 days before illness onset No symptoms or risks identified at this time. Screenin:20 Abuse screen: Denies threats or abuse. Denies injuries from another. Nutritional iw screening: No deficits noted. Tuberculosis screening: No symptoms or risk factors identified. Fall Risk None identified. Assessment: 15:00 General: Appears in no apparent distress. Behavior is calm, cooperative. Pain: iw Complains of pain in right leg and right knee. Neuro: Level of Consciousness is awake, alert, obeys commands, Oriented to person, place, time, situation. Cardiovascular: Patient's skin is warm and dry. Respiratory: Respiratory effort is even, unlabored, Respiratory pattern is regular. Derm: Skin is intact, is healthy with good turgor. Musculoskeletal: Range of motion: limited in right knee. Vital Signs: 14:07 BP 130 / 68; Pulse 91; Resp 17; Temp 97.7; Pulse Ox 99% on R/A; Weight 129.27 kg; aj Height 5 ft. 2 in. (157.48 cm); 14:07 Body Mass Index 52.13 (129.27 kg, 157.48 cm) aj ED Course: 14:02 Patient arrived in ED. mr 14:02 None, None is Private Physician. mr 14:06 Triage completed. aj 14:07 Arm band placed on left wrist. Patient placed in waiting room, Patient notified of wait aj time. X-ray ordered. 14:44 Rosa Freitas, RN is Primary Nurse. iw 14:52 Knee Right 3 View XRAY In Process Unspecified. EDMS 15:00 Patient has correct armband on for positive identification. iw 15:02 Joe Donaldson NP is PHCP. pm1 15:02 Henry Lynn MD is Attending Physician. pm1 16:21 No provider procedures requiring assistance completed. Patient did not have IV access iw during this emergency room visit. Administered Medications: No medications were administered Outcome: 15:44 Discharge ordered by MD. pm1 16:21 Discharged to home ambulatory, with crutches, with family. iw 16:21 Condition: good 16:21 Discharge instructions given to patient, Instructed on discharge instructions, follow up and referral plans. Demonstrated understanding of instructions, follow-up care. 16:22 Patient left the ED. iw Signatures: Dispatcher [employer] EDMS Marli Anaya RN RN aj Rivera, Mary mr Rosa Freitas, RN RN iw Joe Donaldson, WELDING PROCESS SPECIALIST WELDING PROCESS SPECIALIST pm1
--- NOTE | 2018-02-01 15:45 | EDPHYS ---
Physician Documentation [facility] Name: Tejas Tomlinson Age: 22 yrs Sex: Female : 1995 Arrival Date: 02/01/2018 Time: 14:02 Bed 11 Private MD: None, None ED Physician Henry Lynn HPI: 02/01 15:15 This 22 yrs old Female presents to ER via Ambulatory with complaints of Right pm1 Knee Pain. 15:15 The patient presents with pain. The complaints affect the right knee. Context: resulted pm1 from an unknown cause, the patient can fully bear weight, the patient is able to ambulate, Problem is a result from a previous injury: No. Onset: The symptoms/episode began/occurred 2 week(s) ago. Modifying factors: the symptoms are aggravated by Bending knee 90 degrees, squatting, and crouching. Associated signs and symptoms: Pertinent negatives calf tenderness, fever, numbness, tingling. Treatment prior to arrival includes: no previous treatment. Severity of symptoms: in the emergency department the symptoms are unchanged. The patient has not experienced similar symptoms in the past. The patient has not recently seen a physician. 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 - Social history:: Smoking status: Patient/guardian denies using tobacco. - Ebola Screening: : Patient negative for fever greater than or equal to 101.5 degrees Fahrenheit, and additional compatible Ebola Virus Disease symptoms Patient denies exposure to infectious person Patient denies travel to an Ebola-affected area in the 21 days before illness onset No symptoms or risks identified at this time. ROS: 15:15 Constitutional: Negative for fever, chills, and weight loss, Eyes: Negative for injury, pm1 pain, redness, and discharge, ENT: Negative for injury, pain, and discharge, Neck: Negative for injury, pain, and swelling, Cardiovascular: Negative for chest pain, palpitations, and edema, Respiratory: Negative for shortness of breath, cough, wheezing, and pleuritic chest pain, Abdomen/GI: Negative for abdominal pain, nausea, vomiting, diarrhea, and constipation, Back: Negative for injury and pain. 15:15 Skin: Negative for injury, rash, and discoloration, Neuro: Negative for headache, weakness, numbness, tingling, and seizure. 15:15 MS/extremity: Positive for pain, Negative for decreased range of motion, deformity, swelling. Exam: 15:15 Constitutional: This is a well developed, well nourished patient who is awake, alert, pm1 and in no acute distress. Head/Face: Normocephalic, atraumatic. Eyes: Pupils equal round and reactive to light, extra-ocular motions intact. Lids and lashes normal. Conjunctiva and sclera are non-icteric and not injected. Cornea within normal limits. Periorbital areas with no swelling, redness, or edema. ENT: Nares patent. No nasal discharge, no septal abnormalities noted. Tympanic membranes are normal and external auditory canals are clear. Oropharynx with no redness, swelling, or masses, exudates, or evidence of obstruction, uvula midline. Mucous membranes moist. Neck: Trachea midline, no thyromegaly or masses palpated, and no cervical lymphadenopathy. Supple, full range of motion without nuchal rigidity, or vertebral point tenderness. No Meningismus. Chest/axilla: Normal chest wall appearance and motion. Nontender with no deformity. No lesions are appreciated. Cardiovascular: Regular rate and rhythm with a normal S1 and S2. No gallops, murmurs, or rubs. No pulse deficits. Respiratory: Lungs have equal breath sounds bilaterally, clear to auscultation and percussion. No rales, rhonchi or wheezes noted. No increased work of breathing, no retractions or nasal flaring. Abdomen/GI: Soft, non-tender, with normal bowel sounds. No distension or tympany. No guarding or rebound. No evidence of tenderness throughout. Back: No spinal tenderness. No costovertebral tenderness. Full range of motion. Skin: Warm, dry with normal turgor. Normal color with no rashes, no lesions, and no evidence of cellulitis. 15:15 Musculoskeletal/extremity: Extremities: grossly normal except: tenderness medial right knee pain below the patella. 15:15 Neuro: Orientation: is normal, Motor: is normal, moves all fours. Vital Signs: 14:07 BP 130 / 68; Pulse 91; Resp 17; Temp 97.7; Pulse Ox 99% on R/A; Weight 129.27 kg; aj Height 5 ft. 2 in. (157.48 cm); 14:07 Body Mass Index 52.13 (129.27 kg, 157.48 cm) aj MDM: 15:03 Patient medically screened. [facility] 15:43 Data reviewed: vital signs. Data interpreted: Pulse oximetry: on room air is 99 %. pm1 Interpretation: normal. Counseling: I had a detailed discussion with the patient and/or guardian regarding: the historical points, exam findings, and any diagnostic results supporting the discharge/admit diagnosis, radiology results, the need for outpatient follow up, to return to the emergency department if symptoms worsen or persist or if there are any questions or concerns that arise at home. 02/01 14:10 Order name: Knee Right 3 View XRAY 02/01 15:45 Order name: Knee Immobilizer; Complete Time: 16:22 pm1 02/01 15:45 Order name: Crutches; Complete Time: 16:22 pm1 Administered Medications: No medications were administered Disposition: 17:00 Co-signature as Attending Physician, Henry Lynn MD I agree with the assessment and [facility] plan of care. Disposition: 02/01/18 15:44 Discharged to Home. Impression: Pain in right knee. - Condition is Stable. - Discharge Instructions: Crutch Use, Knee Immobilizer, Knee Pain. - Work release form, Medication Reconciliation Form, Thank You Letter form. - Follow up: Emergency Department; When: As needed; Reason: Worsening of condition. Follow up: Private Physician; When: 2 - 3 days; Reason: Recheck today's complaints, Continuance of care, Re-evaluation by your physician. - Problem is new. - Symptoms have improved. Signatures: Dispatcher [employer] EDMarli Hernandez RN RN aj Anderson, Corey, MD MD cha Williams, Irene, RN RN iw Marinas, Patrick, SOCIAL SERVICES ANALYST SOCIAL SERVICES ANALYST pm1 Corrections: (The following items were deleted from the chart) 16:22 15:44 02/01/2018 15:44 Discharged to Home. Impression: Pain in right knee. Condition is iw Stable. Forms are Medication Reconciliation Form, Thank You Letter, Antibiotic Education, Prescription Opioid Use. Follow up: Emergency Department; When: As needed; Reason: Worsening of condition. Follow up: Private Physician; When: 2 - 3 days; Reason: Recheck today's complaints, Continuance of care, Re-evaluation by your physician. Problem is new. Symptoms have improved. pm1
--- NOTE | 2018-02-01 16:28 | RAD REPORT ---
EXAM DESCRIPTION: RAD - Knee Right 3 View - 02/01/2018 2:56 pm CLINICAL HISTORY: Nontraumatic knee pain COMPARISON: None. FINDINGS: No fracture, dislocation or periosteal reaction.No joint effusion seen. No joint space isai rowing. No foreign body or other soft tissue abnormality. Clinical concerns for internal derangement or occult bony injury could be further assessed with MR im aging. IMPRESSION: Negative right knee.
[2018-02-01] MEDS ORDERED: FAMOTIDINE 20 MG/2 ML VIAL IV ONE (16:47)
[2018-02-01 17:30] VITALS: BP 130/68; TEMP 97.7; O2SAT 99
== END 2018-02-01 16:22 | disposition home or self-care (01) ==
LOC: ER 13:55
DX: M25.561 Pain in right knee (principal); Z88.1 Allergy status to other antibiotic agents
CPT/HCPCS: 99283; J2270; J2405; J7030

== ENCOUNTER 2018-07-19 13:34 | Emergency (ER) | payer SELFPAY ==
--- OUTSIDE RECORDS SUMMARY | 2018-07-19 13:36 | XMS REPORT ---
:1995 [facility] Address [address] [place] [address] Dr. Sandhu [address] [place] [id number] Care Team Providers Name Role Phone Unavailable Unavailable Unavailable Problems This patient has no known problems. Allergies, Adverse Reactions, Alerts This patient has no known allergies or adverse reactions. Medications This patient has no known medications.
[2018-07-19 15:02] LABS: Urine Blood NEGATIVE (NEG); Urine Glucose NEGATIVE (NEG); Urine Protein NEGATIVE (NEG)
[2018-07-19 15:10] LABS: Absolute Lymphocytes (CBC) 2.6 K/uL (0.7-4.9); Absolute Monocytes 0.5 K/uL (0.1-1.3); Absolute Neutrophil 4.9 K/uL (1.8-8.0); Basophils % 1.1 % (0-1.3); Eosinophils % 0.5 % (0-4.4); Hematocrit 40.1 % (36.0-45.0); Lymphocytes % 31.9 % (15.3-44.8); MPV 10.3 fL (7.6-11.3); Monocytes % 6.4 % (3.3-12.3); RBC Red Blood Cell Count 5.01 M/uL (3.86-4.86)
[2018-07-19 15:14] LABS: Urine Bacteria 20-50 /HPF (<20); Urine Culture Reflex Order REFLEXED; Urine RBC <5 /HPF (NONE SEEN)
[2018-07-19 15:15] LABS: Urine Amorphous Sediment 2+ /HPF (NONE SEEN); Urine Yeast PRESENT (NONE SEEN)
[2018-07-19] MEDS ORDERED: KETOROLAC 30 MG/ML INJ ONE (15:29)
[2018-07-19 15:50] LABS: ALT/SGPT 48 U/L (12-78); AST/SGOT 28 U/L (15-37); Alkaline Phosphatase 62 U/L (45-117); BUN Blood Urea Nitrogen 7 mg/dL (7-18); Bicarbonate 29 mmol/L (21-32); Bilirubin Direct 0.1 mg/dL (0-0.2); Bilirubin Total 0.4 mg/dL (0.2-1.0); Glucose Level 95 mg/dL (74-106); Lipase 76 U/L (73-393); Potassium 3.6 mmol/L (3.5-5.1); Protein, Total 8.5 g/dL (6.4-8.2); Sodium Level 138 mmol/L (136-145)
--- NOTE | 2018-07-19 16:10 | ER ---
Nurse's Notes [facility] Name: Tejas Tomlinson Age: 22 yrs Sex: Female : 1995 Arrival Date: 07/19/2018 Time: 13:34 Bed 13 Private MD: Diagnosis: Urinary tract infection, site not specified;Candidiasis of vulva and vagina Presentation: 07/19 13:40 Presenting complaint: Patient states: left sided upper abd pain since Tuesday, denies la1 N/V/D. Transition of care: patient was not received from another setting of care. Onset of symptoms was July 19, 2018. Risk Assessment: Do you want to hurt yourself or someone else? Patient reports no desire to harm self or others. Initial Sepsis Screen: Does the patient meet any 2 criteria? No. Patient's initial sepsis screen is negative. Does the patient have a suspected source of infection? No. Patient's initial sepsis screen is negative. Care prior to arrival: None. 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 - Social history:: Smoking status: Patient/guardian denies using tobacco. - Ebola Screening: : No symptoms or risks identified at this time. Screenin:30 Abuse screen: Denies threats or abuse. Nutritional screening: No deficits noted. aa5 Tuberculosis screening: No symptoms or risk factors identified. Fall Risk None identified. Assessment: 14:30 General: Appears comfortable, Behavior is calm, cooperative. Pain: Complains of pain in aa5 left upper quadrant Pain does not radiate. Pain currently is 10 out of 10 on a pain scale. Quality of pain is described as sharp, Pain began 3-4 days ago Is continuous. Neuro: Level of Consciousness is awake, alert, obeys commands, Oriented to person, place, time, situation. Cardiovascular: Heart tones S1 S2 present Rhythm is regular. Respiratory: Airway is patent Respiratory effort is even, unlabored, Respiratory pattern is regular, symmetrical. GI: Abdomen is obese, Bowel sounds present X 4 quads. Abd is soft and non tender X 4 quads. Patient currently denies diarrhea, nausea, vomiting. : No signs and/or symptoms were reported regarding the genitourinary system. EENT: No signs and/or symptoms were reported regarding the EENT system. Derm: Skin is pink, warm \T\ dry. Musculoskeletal: Range of motion: intact in all extremities. 15:13 Reassessment: Patient is alert, oriented x 3, equal unlabored respirations, skin aa5 warm/dry/pink. Patient states symptoms have not improved. Pt lying down in bed watching TV show on tablet. CROZE CUTTER notified of pt's pain level . Pain: Pain currently is 10 out of 10 on a pain scale. 16:30 Reassessment: Patient is alert, oriented x 3, equal unlabored respirations, skin aa5 warm/dry/pink. Patient states feeling better. Vital Signs: 13:41 BP 146 / 101; Pulse 97; Resp 16; Temp 97.8; Pulse Ox 98% on R/A; Weight 139.71 kg; la1 Height 5 ft. 2 in. (157.48 cm); Pain 10/10; 15:11 BP 136 / 81; Pulse 94; Resp 16 S; Pulse Ox 99% on R/A; aa5 16:28 BP 134 / 81; Pulse 90; Resp 18 S; Temp 98.0(TE); Pulse Ox 98% on R/A; Pain 8/10; aa5 13:41 Body Mass Index 56.33 (139.71 kg, 157.48 cm) la1 ED Course: 13:34 Patient arrived in ED. rg4 13:41 Triage completed. la1 13:42 Arm band placed on right wrist. la1 14:23 Anastasia Cruz, ESTELLE is Primary Nurse. aa5 14:28 Terra Sparks FNP-C is PHCP. kb 14:28 Rick Mathur MD is Attending Physician. kb 14:30 Patient has correct armband on for positive identification. Bed in low position. Call aa5 light in reach. Side rails up X 1. 14:45 Initial lab(s) drawn, by me, sent to lab. Inserted saline lock: 20 gauge in right aa5 forearm, using aseptic technique. Blood collected. 16:28 No provider procedures requiring assistance completed. IV discontinued, intact, aa5 bleeding controlled, No redness/swelling at site. Pressure dressing applied. Administered Medications: 15:18 Drug: TORadol 30 mg Route: IVP; Site: right forearm; aa5 15:25 Follow up: Response: No adverse reaction aa5 16:25 Drug: DiFLUcan 150 mg Route: PO; iw 16:25 Follow up: Response: Medication administered at discharge. aa5 Outcome: 16:09 Discharge ordered by . carlos 16:30 Discharged to home ambulatory. aa5 16:30 Condition: good 16:30 Discharge instructions given to patient, Instructed on discharge instructions, follow up and referral plans. medication usage, Demonstrated understanding of instructions, follow-up care, medications, Prescriptions given X 2. 16:31 Patient left the ED. aa5 Signatures: Terra Sparks, SUPERVISOR [employer]CH[employer]-C SUPERVISOR [employer]CH[employer]-CkRosa Glover, RN Anastasia Lees RN RN aa5 Antony Baez RN RN Daniela Quiles 4
--- NOTE | 2018-07-19 16:11 | EDPHYS ---
Physician Documentation [facility] Name: Tejas Tomlinson Age: 22 yrs Sex: Female : 1995 Arrival Date: 07/19/2018 Time: 13:34 Bed 13 Private MD: ED Physician Rick Mathur HPI: 07/19 16:48 This 22 yrs old Female presents to ER via Ambulatory with complaints of Flank kb Pain. 16:48 The patient presents with abdominal pain in the left upper quadrant. The symptoms do kb not radiate. 16:48 Onset: The symptoms/episode began/occurred 5 day(s) ago. Associated signs and symptoms: kb Pertinent positives: nausea, Pertinent negatives: constipation, diarrhea, fever, vomiting. The symptoms are described as constant, waxing/waning. Modifying factors: The symptoms are alleviated by NSAIDs, the symptoms are aggravated by movement. Severity of pain: At its worst the pain was moderate in the emergency department the pain is unchanged. The patient has not experienced similar symptoms in the past. The patient has not recently seen a physician. 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 - Social history:: Smoking status: Patient/guardian denies using tobacco. - Ebola Screening: : No symptoms or risks identified at this time. ROS: 16:47 Constitutional: Negative for fever, chills, and weight loss, Cardiovascular: Negative kb for chest pain, palpitations, and edema, Respiratory: Negative for shortness of breath, cough, wheezing, and pleuritic chest pain, Back: Negative for injury and pain, MS/Extremity: Negative for injury and deformity, Skin: Negative for injury, rash, and discoloration, Neuro: Negative for headache, weakness, numbness, tingling, and seizure. 16:47 Abdomen/GI: Positive for abdominal pain, nausea, Negative for vomiting, diarrhea, constipation, abdominal cramps, abdominal distension, anorexia. Exam: 16:47 Constitutional: This is a well developed, well nourished patient who is awake, alert, kb and in no acute distress. Head/Face: Normocephalic, atraumatic. ENT: Nares patent. No nasal discharge, no septal abnormalities noted. Tympanic membranes are normal and external auditory canals are clear. Oropharynx with no redness, swelling, or masses, exudates, or evidence of obstruction, uvula midline. Mucous membranes moist. Neck: Trachea midline, no thyromegaly or masses palpated, and no cervical lymphadenopathy. Supple, full range of motion without nuchal rigidity, or vertebral point tenderness. No Meningismus. Chest/axilla: Normal chest wall appearance and motion. Nontender with no deformity. No lesions are appreciated. Cardiovascular: Regular rate and rhythm with a normal S1 and S2. No gallops, murmurs, or rubs. Normal PMI, no JVD. No pulse deficits. Respiratory: Lungs have equal breath sounds bilaterally, clear to auscultation and percussion. No rales, rhonchi or wheezes noted. No increased work of breathing, no retractions or nasal flaring. Abdomen/GI: Soft, non-tender, with normal bowel sounds. No distension or tympany. No guarding or rebound. No evidence of tenderness throughout. Back: No spinal tenderness. No costovertebral tenderness. Full range of motion. Skin: Warm, dry with normal turgor. Normal color with no rashes, no lesions, and no evidence of cellulitis. MS/ Extremity: Pulses equal, no cyanosis. Neurovascular intact. Full, normal range of motion. Neuro: Awake and alert, GCS 15, oriented to person, place, time, and situation. Cranial nerves II-XII grossly intact. Motor strength 5/5 in all extremities. Sensory grossly intact. Cerebellar exam normal. Normal gait. Vital Signs: 13:41 BP 146 / 101; Pulse 97; Resp 16; Temp 97.8; Pulse Ox 98% on R/A; Weight 139.71 kg; la1 Height 5 ft. 2 in. (157.48 cm); Pain 10/10; 15:11 BP 136 / 81; Pulse 94; Resp 16 S; Pulse Ox 99% on R/A; aa5 16:28 BP 134 / 81; Pulse 90; Resp 18 S; Temp 98.0(TE); Pulse Ox 98% on R/A; Pain 8/10; aa5 13:41 Body Mass Index 56.33 (139.71 kg, 157.48 cm) la1 MDM: 14:29 Patient medically screened. kb 16:08 Data reviewed: vital signs, nurses notes. Data interpreted: Pulse oximetry: on room air kb is 99 %. Interpretation: normal. Counseling: I had a detailed discussion with the patient and/or guardian regarding: the historical points, exam findings, and any diagnostic results supporting the discharge/admit diagnosis, lab results, the need for outpatient follow up, a family practitioner, to return to the emergency department if symptoms worsen or persist or if there are any questions or concerns that arise at home. 07/19 14:28 Order name: Urine Microscopic Only; Complete Time: 15:21 kb 07/19 14:40 Order name: Urine Dipstick--Ancillary (enter results); Complete Time: 15:13 bd 07/19 14:40 Order name: Urine --Ancillary (enter results); Complete Time: 15:13 bd 07/19 14:45 Order name: Basic Metabolic Panel; Complete Time: 16:04 kb 07/19 14:45 Order name: CBC with Diff; Complete Time: 15:14 kb 07/19 14:45 Order name: Hepatic Function; Complete Time: 16:04 kb 07/19 14:28 Order name: Urine Test (obtain specimen); Complete Time: 14:46 kb 07/19 14:28 Order name: Urine Dipstick-Ancillary (obtain specimen); Complete Time: 14:46 kb 07/19 14:45 Order name: Lipase; Complete Time: 16:04 kb 07/19 14:45 Order name: IV Saline Lock; Complete Time: 14:46 kb 07/19 14:45 Order name: Labs collected and sent; Complete Time: 14:46 kb 07/19 15:16 Order name: Urine Culture EDMS Administered Medications: 15:18 Drug: TORadol 30 mg Route: IVP; Site: right forearm; aa5 15:25 Follow up: Response: No adverse reaction aa5 16:25 Drug: DiFLUcan 150 mg Route: PO; iw 16:25 Follow up: Response: Medication administered at discharge. aa5 Disposition: 16:56 Co-signature as Attending Physician, Rick Mathur MD. rn Disposition: 07/19/18 16:09 Discharged to Home. Impression: Urinary tract infection, site not specified, Candidiasis of vulva and vagina. - Condition is Stable. - Discharge Instructions: Vaginal Yeast Infection, Adult, Urinary Tract Infection, Adult, [id number]. - Prescriptions for Macrobid 100 mg Oral Capsule - take 1 capsule by ORAL route every 12 hours for 7 days; 14 capsule. Diclofenac Sodium 75 mg Oral Tablet, Delayed Release (E.C.) - take 1 tablet by ORAL route 2 times per day As needed; 30 tablet. - Medication Reconciliation Form, Thank You Letter, Antibiotic Education, Prescription Opioid Use, Work release form form. - Follow up: Emergency Department; When: As needed; Reason: Worsening of condition. Follow up: Private Physician; When: 2 - 3 days; Reason: Recheck today's complaints, Continuance of care, Re-evaluation by your physician. Signatures: Dispatcher [employer] EDMS Terra Sparks, CARCASS SPLITTER-C CARCASS SPLITTER-CkRosa Glover, ESTELLE RN Rick Gloria MD MD rn Calderon, Audri, RN RN aa5 Antony Baez RN RN la1 Corrections: (The following items were deleted from the chart) 16:31 16:09 07/19/2018 16:09 Discharged to Home. Impression: Urinary tract infection, site aa5 not specified; Candidiasis of vulva and vagina. Condition is Stable. Forms are Medication Reconciliation Form, Thank You Letter, Antibiotic Education, Prescription Opioid Use. Follow up: Emergency Department; When: As needed; Reason: Worsening of condition. Follow up: Private Physician; When: 2 - 3 days; Reason: Recheck today's complaints, Continuance of care, Re-evaluation by your physician. kb
[2018-07-19] MEDS ORDERED: FLUCONAZOLE 100 MG TAB ONE (16:33)
[2018-07-19 23:49] VITALS: TEMP 97.8
[2018-07-19 23:50] VITALS: BP 136/81; O2SAT 99
== END 2018-07-19 16:31 | disposition home or self-care (01) ==
LOC: ER 13:34
DX: N39.0 Urinary tract infection, site not specified (principal); B37.3 Candidiasis of vulva and vagina; Z88.1 Allergy status to other antibiotic agents; Z88.0 Allergy status to penicillin
CPT/HCPCS: 36415; 80048; 80076; 81003; 81015; 81025; 83690; 85025; 87086; 87088; 96374; 99284

== ENCOUNTER 2018-09-26 23:56 | Emergency (ER) | payer SELFPAY ==
--- OUTSIDE RECORDS SUMMARY | 2018-09-26 23:58 | XMS REPORT ---
:1995 [facility] Address [address] [place] [address] Dr. Sandhu [address] [place] [id number] Care Team Providers Name Role Phone Unavailable Unavailable Unavailable Problems This patient has no known problems. Allergies, Adverse Reactions, Alerts This patient has no known allergies or adverse reactions. Medications This patient has no known medications.
--- NOTE | 2018-09-27 01:43 | ER ---
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 Transition of care: patient was not received from another setting of care. Onset of symptoms is unknown. Risk Assessment: Do you want to hurt yourself or someone else? Patient reports no desire to harm self or others. Initial Sepsis Screen: Does the patient meet any 2 criteria? No. Patient's initial sepsis screen is negative. Does the patient have a suspected source of infection? No. Patient's initial sepsis screen is negative. Care prior to arrival: None. 00:28 Method Of Arrival: Ambulatory ak1 00:28 Acuity: JONATAN 4 ak1 Triage Assessment: 00:29 General: Appears in no apparent distress. Behavior is calm, cooperative. Pain: ak1 Complains of pain in posterior aspect of left knee and left knee. EENT: No signs and/or symptoms were reported regarding the EENT system. Neuro: No deficits noted. Cardiovascular: No deficits noted. Respiratory: No deficits noted. GI: No signs and/or symptoms were reported involving the gastrointestinal system. : No signs and/or symptoms were reported regarding the genitourinary system. Derm: No signs and/or symptoms reported regarding the dermatologic system. Musculoskeletal: Range of motion: intact in all extremities, Reports pain in posterior aspect of left knee and left knee. 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 - Social history:: Smoking status: Patient/guardian denies using tobacco. - Ebola Screening: : No symptoms or risks identified at this time. Screenin:30 Abuse screen: Denies threats or abuse. Denies injuries from another. Nutritional ak1 screening: No deficits noted. Tuberculosis screening: No symptoms or risk factors identified. Fall Risk None identified. Assessment: 00:59 General: Appears in no apparent distress. comfortable, Behavior is calm, cooperative. rv Pain: Complains of pain in left knee. Neuro: Level of Consciousness is awake, alert, obeys commands, Oriented to person, place, time, situation. Cardiovascular: Patient's skin is warm and dry. Respiratory: Airway is patent. GI: No signs and/or symptoms were reported involving the gastrointestinal system. : No signs and/or symptoms were reported regarding the genitourinary system. EENT: No signs and/or symptoms were reported regarding the EENT system. Derm: Skin is intact. Musculoskeletal: Reports pain in left knee. Vital Signs: 00:26 BP 146 / 90; Pulse 79; Resp 16; Temp 98; Pulse Ox 100% on R/A; Weight 139.71 kg (R); ak1 Height 5 ft. 2 in. (157.48 cm) (R); Pain 9/10; 02:01 BP 138 / 86; Pulse 81; Resp 18; Pulse Ox 99% ; rv 00:26 Body Mass Index 56.33 (139.71 kg, 157.48 cm) ak1 ED Course: 00:01 Patient arrived in ED. ag3 00:26 Arm band placed on Patient placed in waiting room, Patient notified of wait time. ak1 00:28 Triage completed. ak1 00:30 Patient has correct armband on for positive identification. ak1 00:45 José Miguel Gunn, ESTELLE is Primary Nurse. rv 00:48 Henry Luong PA is PHCP. cp 00:48 Elpidio Crandall MD is Attending Physician. cp 01:02 X-ray completed. Portable x-ray completed in exam room. Patient tolerated procedure kw well. 01:03 XRAY Knee LEFT 3 view In Process Unspecified. EDMS 01:42 Santana Li MD is Referral Physician. cp 02:02 No provider procedures requiring assistance completed. Patient did not have IV access rv during this emergency room visit. Vito wrap to left knee. Administered Medications: 01:54 Drug: Ibuprofen 800 mg Route: PO; rv 01:54 Follow up: Response: Medication administered at discharge. rv Outcome: 01:42 Discharge ordered by . cp 02:02 Discharged to home ambulatory, with crutches, with family. rv 02:02 Condition: good 02:02 Discharge instructions given to patient, family, Instructed on discharge instructions, follow up and referral plans. medication usage, crutch walking, Demonstrated understanding of instructions, follow-up care, medications, crutch walking, Prescriptions given X 1. 02:02 Patient left the ED. rv Signatures: Dispatcher [employer] EDMS Caren Johnson Amber RN RN ak1 Henry Luong PA PA cp Vicente, Ronaldo, RN RN rv Michelle Adkins
--- NOTE | 2018-09-27 01:43 | EDPHYS ---
Physician Documentation [facility] Name: Tejas Tomlinson Age: 23 yrs Sex: Female : 1995 Arrival Date: 09/27/2018 Time: 00:01 Bed 25 Private MD: ED Physician Elpidio Crandall HPI: 09/27 01:35 This 23 yrs old Female presents to ER via Ambulatory with complaints of Knee cp Pain. 01:35 The patient presents with pain, that is acute. cp 01:35 The complaints affect the left knee. Context: resulted from an unknown cause, the cp patient can fully bear weight, the patient is able to ambulate, with mild difficulty, Problem is a result from a previous injury: No. Onset: The symptoms/episode began/occurred 2 week(s) ago. Modifying factors: the symptoms are aggravated by weight bearing, bending knee. Associated signs and symptoms: Pertinent negatives calf tenderness, fever, numbness, swelling, warmth, weakness. Treatment prior to arrival includes: no previous treatment. 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 - Social history:: Smoking status: Patient/guardian denies using tobacco. - Ebola Screening: : No symptoms or risks identified at this time. ROS: 01:37 Eyes: Negative for injury, pain, redness, and discharge. cp 01:37 Constitutional: Negative for body aches, chills, fever, poor PO intake. 01:37 Cardiovascular: Negative for chest pain. cp 01:37 Respiratory: Negative for cough, shortness of breath, wheezing. 01:37 Abdomen/GI: Negative for abdominal pain, nausea, vomiting, and diarrhea. 01:37 Back: Negative for pain at rest, pain with movement. 01:37 MS/extremity: Positive for pain, of the left knee, Negative for injury or acute deformity, decreased range of motion. 01:37 All other systems are negative. Exam: 01:40 Constitutional: The patient appears in no acute distress, alert, awake, non-toxic, well cp developed, well nourished, obese. 01:40 Head/Face: Normocephalic, atraumatic. cp 01:40 Chest/axilla: Inspection: normal. 01:40 Cardiovascular: Rate: normal. 01:40 Respiratory: the patient does not display signs of respiratory distress, Respirations: normal, no use of accessory muscles, no retractions, no splinting, no tachypnea. 01:40 Musculoskeletal/extremity: ROM: limited passive range of motion due to pain, in the left knee, Perfusion: the extremity is normally perfused throughout, Sensation intact. Joints: All joints are normal except the left knee displays painful range of motion, tenderness, Weight bearing: able to fully bear weight, DVT Exam: No signs of deep vein thrombosis. no pain, no swelling, no tenderness, negative Homans' sign noted on exam, no erythema, no increased warmth. 01:40 Skin: cellulitis, is not appreciated, no rash present. Vital Signs: 00:26 BP 146 / 90; Pulse 79; Resp 16; Temp 98; Pulse Ox 100% on R/A; Weight 139.71 kg (R); ak1 Height 5 ft. 2 in. (157.48 cm) (R); Pain 9/10; 02:01 BP 138 / 86; Pulse 81; Resp 18; Pulse Ox 99% ; rv 00:26 Body Mass Index 56.33 (139.71 kg, 157.48 cm) ak1 MDM: 00:56 Patient medically screened. cp 01:40 Differential diagnosis: closed fracture, tendonitis, sprain, strain, DVT. cp 01:41 Data reviewed: vital signs, nurses notes, radiologic studies, plain films. cp 01:41 Test interpretation: by ED physician or midlevel provider: plain radiologic studies. cp Counseling: I had a detailed discussion with the patient and/or guardian regarding: the historical points, exam findings, and any diagnostic results supporting the discharge/admit diagnosis, radiology results, the need for outpatient follow up, a orthopedic surgeon, to return to the emergency department if symptoms worsen or persist or if there are any questions or concerns that arise at home. 09/27 00:30 Order name: XRAY Knee LEFT 3 view ak1 09/27 01:39 Order name: Vito wrap-joint; Complete Time: 01:55 cp 09/27 01:39 Order name: Crutches; Complete Time: 01:55 cp Administered Medications: 01:54 Drug: Ibuprofen 800 mg Route: PO; rv 01:54 Follow up: Response: Medication administered at discharge. rv Disposition: 06:11 Co-signature as Attending Physician, Elpidio Crandall MD I agree with the assessment and tw4 plan of care. Disposition: 09/27/18 01:42 Discharged to Home. Impression: Pain in left knee. - Condition is Stable. - Discharge Instructions: Elastic Bandage and RICE, Knee Pain. - Prescriptions for Ibuprofen 800 mg Oral Tablet - take 1 tablet by ORAL route every 8 hours As needed take with food; 30 tablet. - Medication Reconciliation Form, Thank You Letter, Antibiotic Education, Prescription Opioid Use, Work release form form. - Follow up: Santana Li MD; When: 1 - 2 days; Reason: left knee pain. - Problem is new. - Symptoms have improved. Signatures: Dispatcher [employer] EDMS Treva Gamez, RN RN ak1 Henry Luong PA PA Elpidio Ennis MD MD tw4 José Miguel Gunn RN RN rv Corrections: (The following items were deleted from the chart) 02:02 01:42 09/27/2018 01:42 Discharged to Home. Impression: Pain in left knee. Condition is rv Stable. Forms are Medication Reconciliation Form, Thank You Letter, Antibiotic Education, Prescription Opioid Use. Follow up: Santana Li; When: 1 - 2 days; Reason: left knee pain. Problem is new. Symptoms have improved. cp 09/28 00:09/26 01:39 Constitutional: The patient appears in no acute distress, alert, awake, cp non-toxic, well developed, well nourished, obese, cp 09/28 01:09/26 01:39 Head/Face: Normocephalic, atraumatic. cp cp 09/28 01:09/26 01:39 Eyes: Periorbital structures: appear normal, Conjunctiva: normal, no cp exudate, no injection, Lids and lashes: appear normal, bilaterally, cp 09/28 01:09/26 01:39 ENT: External ear(s): are unremarkable, Nose: is normal, Mouth: is normal, cp cp 09/28 00:09/26 01:39 Chest/axilla: Inspection: normal, cp cp 09/28 01:09/26 01:39 Cardiovascular: Rate: normal, cp cp 09/28 01:09/26 01:39 Respiratory: the patient does not display signs of respiratory distress, cp Respirations: normal, no use of accessory muscles, no retractions, no splinting, no tachypnea, cp 09/28 01:09/26 01:39 Musculoskeletal/extremity: Joints: All joints are normal except the left cp knee displays painful range of motion, tenderness, Weight bearing: able to fully bear weight, DVT Exam: no pain, no swelling, no tenderness, negative Homans' sign noted on exam, no erythema, no increased warmth, cp 09/28 00:09/26 01:39 Skin: cellulitis, is not appreciated, cp cp
[2018-09-27] MEDS ORDERED: IBUPROFEN 400 MG TAB ONE (02:09)
[2018-09-27 04:34] VITALS: TEMP 98
[2018-09-27 04:36] VITALS: BP 138/86; O2SAT 99
--- NOTE | 2018-09-27 08:42 | RAD REPORT ---
EXAM DESCRIPTION: RAD - Knee Left 3 View - 09/27/2018 1:03 am CLINICAL HISTORY: Persistent nontraumatic knee pain COMPARISON: None. FINDINGS: No fracture, dislocation or periosteal reaction.No joint effusion seen. No joint space isai rowing. No soft tissue abnormality. Minimal edema in the soft tissues anterior to the patella and patella tendon IMPRESSION: Negative knee examination for acute bone finding. No measurable joint effusion. Clinical concerns for internal derangement or occult bony injury could be further assessed with MR im aging.
== END 2018-09-27 02:02 | disposition home or self-care (01) ==
LOC: ER 23:56
DX: M25.562 Pain in left knee (principal); Z88.0 Allergy status to penicillin
CPT/HCPCS: 99284

== ENCOUNTER 2018-10-19 19:23 | Emergency (ER) | payer SELFPAY ==
--- OUTSIDE RECORDS SUMMARY | 2018-10-19 19:26 | XMS REPORT ---
:1995 [facility] Address [address] [address] Dr. Sandhu [address] [place] [id number] Care Team Providers Name Role Phone Unavailable Unavailable Unavailable Problems This patient has no known problems. Allergies, Adverse Reactions, Alerts This patient has no known allergies or adverse reactions. Medications This patient has no known medications.
[2018-10-19] MEDS ORDERED: IBUPROFEN 400 MG TAB ONE (19:53)
[2018-10-19] MEDS ORDERED: IBUPROFEN 200 MG TAB PO ONE (19:54)
[2018-10-19 21:25] LABS: Urine Blood 2+ (NEG); Urine Glucose NEGATIVE (NEG); Urine Protein NEGATIVE (NEG); Urine pH 7.5 (5.0-7.0)
--- NOTE | 2018-10-19 21:54 | ER ---
Nurse's Notes [facility] Name: Tejas Tomlinson Age: 23 yrs Sex: Female : 1995 Arrival Date: 10/19/2018 Time: 19:26 Bed 7 Private MD: Diagnosis: Otitis externa Presentation: 10/19 19:30 Presenting complaint: Patient states: I have had left ear pain, fever, sore throat la1 since last night, took tylenol at 1500. Transition of care: patient was not received from another setting of care. Onset of symptoms was October 19, 2018. Risk Assessment: Do you want to hurt yourself or someone else? Patient reports no desire to harm self or others. Initial Sepsis Screen: Does the patient meet any 2 criteria? No. Patient's initial sepsis screen is negative. Does the patient have a suspected source of infection? No. Patient's initial sepsis screen is negative. Care prior to arrival: None. 19:30 Method Of Arrival: Ambulatory la1 19:30 Acuity: JONATAN 4 la1 Triage Assessment: 20:11 Headache History: The patient has had previous headaches and this one is more severe lp1 than previous episodes. 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 - Social history:: Smoking status: Patient/guardian denies using tobacco. - Ebola Screening: : No symptoms or risks identified at this time. Screenin:10 Abuse screen: Denies threats or abuse. Denies injuries from another. Nutritional lp1 screening: No deficits noted. Tuberculosis screening: No symptoms or risk factors identified. Fall Risk None identified. Assessment: 19:45 General: Appears in no apparent distress. Behavior is appropriate for age. Pain: lp1 Complains of pain in head, right ear, throat Pain currently is 8 out of 10 on a pain scale. Pain began gradually, Also complains of nausea. Neuro: Level of Consciousness is awake, alert, obeys commands, Oriented to person, place, time, situation, Gait is steady, Reports dizziness, headache. Cardiovascular: Patient's skin is warm and dry. Respiratory: Respiratory effort is even, unlabored. GI: No signs and/or symptoms were reported involving the gastrointestinal system. : No signs and/or symptoms were reported regarding the genitourinary system. EENT: Reports pain when swallowing. Derm: Skin is pink, warm \\T\\ dry. Musculoskeletal: No deficits noted. 21:01 Reassessment: Patient appears in no apparent distress at this time. Patient states lp1 improvement with headache; "I feel like my fever is breaking because I'm sweating" Patient states feeling better. 22:12 Reassessment: Patient appears in no apparent distress at this time. Patient is alert, lp1 oriented x 3, equal unlabored respirations, skin warm/dry/pink. Patient states symptoms have improved. Vital Signs: 19:31 BP 159 / 94; Pulse 111; Resp 16; Temp 100.5; Pulse Ox 98% on R/A; Weight 139.71 kg; la1 Height 5 ft. 2 in. (157.48 cm); 21:00 BP 151 / 92; Pulse 100; Resp 18; Temp 100(O); Pulse Ox 99% on R/A; Pain 5/10; lp1 22:12 Temp 99(O); lp1 19:31 Body Mass Index 56.33 (139.71 kg, 157.48 cm) la1 ED Course: 19:26 Patient arrived in ED. ag3 19:31 Triage completed. la1 19:32 Arm band placed on left wrist. la1 19:37 Elpidio Crandall MD is Attending Physician. tw4 19:52 Linda Wade, RN is Primary Nurse. lp1 20:03 Flu and/or RSV swab sent to lab. Strep swab sent to lab. lp1 20:10 Patient has correct armband on for positive identification. lp1 20:12 No provider procedures requiring assistance completed. lp1 22:12 Patient did not have IV access during this emergency room visit. lp1 Administered Medications: 20:03 Drug: Motrin 600 mg Route: PO; lp1 22:13 Follow up: Response: Temperature is decreased lp1 Outcome: 21:53 Discharge ordered by . tw4 22:12 Discharged to home ambulatory, with family. lp1 22:12 Condition: good 22:12 Discharge instructions given to patient, Instructed on discharge instructions, follow up and referral plans. medication usage, Demonstrated understanding of instructions, follow-up care, medications, Prescriptions given X 2. 22:13 Patient left the ED. lp1 Signatures: Linda Wade RN RN lp1 Antony Baez RN RN la1 Elpidio Crandall MD MD tw4 Michelle Adkins ag3 Corrections: (The following items were deleted from the chart) 20:11 19:45 Pain: Complains of pain in head, right ear, throat lp1 lp1 20:11 19:45 Neuro: Level of Consciousness is awake, alert, obeys commands, Oriented to lp1 person, place, time, situation, Gait is steady, Reports dizziness, headache lp1 20:12 19:45 Pain: Complains of pain in head, right ear, throat Also complains of nausea, lp1 lp1
--- NOTE | 2018-10-19 21:54 | EDPHYS ---
Physician Documentation [facility] Name: Tejas Tomlinson Age: 23 yrs Sex: Female : 1995 Arrival Date: 10/19/2018 Time: 19:26 Bed 7 Private MD: ED Physician Elpidio Crandall HPI: 10/19 19:57 This 23 yrs old Female presents to ER via Ambulatory with complaints of Fever, tw4 Headache. 19:57 The patient reports fever, not measured (subjective). Onset: The symptoms/episode tw4 began/occurred today. Modifying factors: there are no obvious modifying factors. Associated signs and symptoms: Pertinent positives: earache, Pertinent negatives: altered mental status, arthralgias, night sweats, runny nose, sinus congestion, sinus drainage. Severity of symptoms: At their worst the symptoms were mild in the emergency department the symptoms are unchanged. 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 - Social history:: Smoking status: Patient/guardian denies using tobacco. - Ebola Screening: : No symptoms or risks identified at this time. ROS: 19:57 Eyes: Negative for injury, pain, redness, and discharge, Cardiovascular: Negative for tw4 chest pain, palpitations, and edema. 19:57 Respiratory: Negative for shortness of breath, cough, wheezing, and pleuritic chest pain, Abdomen/GI: Negative for abdominal pain, nausea, vomiting, diarrhea, and constipation, MS/Extremity: Negative for injury and deformity, Skin: Negative for injury, rash, and discoloration. 19:57 Constitutional: Positive for fever. 19:57 ENT: Positive for ear pain. Exam: 19:57 Constitutional: This is a well developed, well nourished patient who is awake, alert, tw4 and in no acute distress. Head/Face: Normocephalic, atraumatic. Chest/axilla: Normal chest wall appearance and motion. Nontender with no deformity. No lesions are appreciated. Cardiovascular: Regular rate and rhythm with a normal S1 and S2. No gallops, murmurs, or rubs. Normal PMI, no JVD. No pulse deficits. Respiratory: Lungs have equal breath sounds bilaterally, clear to auscultation and percussion. No rales, rhonchi or wheezes noted. No increased work of breathing, no retractions or nasal flaring. Abdomen/GI: Soft, non-tender, with normal bowel sounds. No distension or tympany. No guarding or rebound. No evidence of tenderness throughout. Back: No spinal tenderness. No costovertebral tenderness. Full range of motion. MS/ Extremity: Pulses equal, no cyanosis. Neurovascular intact. Full, normal range of motion. Neuro: Awake and alert, GCS 15, oriented to person, place, time, and situation. Cranial nerves II-XII grossly intact. Motor strength 5/5 in all extremities. Sensory grossly intact. Cerebellar exam normal. Normal gait. 21:48 ENT: External ear(s): pain with movement, that is mild, of the pinna of left ear, Ear tw4 canal(s): erythema. Vital Signs: 19:31 BP 159 / 94; Pulse 111; Resp 16; Temp 100.5; Pulse Ox 98% on R/A; Weight 139.71 kg; la1 Height 5 ft. 2 in. (157.48 cm); 21:00 BP 151 / 92; Pulse 100; Resp 18; Temp 100(O); Pulse Ox 99% on R/A; Pain 5/10; lp1 22:12 Temp 99(O); lp1 19:31 Body Mass Index 56.33 (139.71 kg, 157.48 cm) la1 MDM: 19:38 Patient medically screened. rust 21:48 Data reviewed: vital signs, nurses notes. Counseling: I had a detailed discussion with 4 the patient and/or guardian regarding: the historical points, exam findings, and any diagnostic results supporting the discharge/admit diagnosis. Special discussion: I discussed with the patient/guardian in detail that at this point there is no indication for admission to the hospital. It is understood, however, that if the symptoms persist or worsen the patient needs to return immediately for re-evaluation. 10/19 19:44 Order name: Basic Metabolic Panel rust 10/19 19:44 Order name: Strep rust 10/19 19:44 Order name: Flu rust 10/19 20:54 Order name: Throat Culture [facility] 10/19 20:59 Order name: Urine [facility] 10/19 21:01 Order name: Urine Dipstick--Ancillary (enter results) ar5 10/19 21:01 Order name: Urine --Ancillary (enter results) ar5 Administered Medications: 20:03 Drug: Motrin 600 mg Route: PO; lp1 22:13 Follow up: Response: Temperature is decreased lp1 Disposition: 10/19/18 21:53 Discharged to Home. Impression: Otitis externa. - Condition is Stable. - Discharge Instructions: Otitis Externa. - Prescriptions for Cleocin 300 mg Oral Capsule - take 1 capsule by ORAL route every 6 hours for 10 days; 40 capsule. Ibuprofen 600 mg Oral Tablet - take 1 tablet by ORAL route every 6 hours As needed take with food; 30 tablet. - Work release form, Medication Reconciliation Form, Thank You Letter, Antibiotic Education, Prescription Opioid Use form. - Follow up: Private Physician; When: Upon discharge from the Emergency Department; Reason: If symptoms return, Recheck today's complaints, Continuance of care. - Problem is new. - Symptoms have improved. Signatures: Dispatcher [employer] [facility] Linda Wade RN RN lp1 Antony Baez RN RN la1 Elpidio Crandall MD MD tw4 Corrections: (The following items were deleted from the chart) 22:04 19:44 IV Saline Lock ordered. 4 1 22:04 19:44 Labs collected and sent ordered. 4 [facility] 22:13 21:53 10/19/2018 21:53 Discharged to Home. Impression: Otitis externa. Condition is lp1 Stable. Forms are Medication Reconciliation Form, Thank You Letter, Antibiotic Education, Prescription Opioid Use. Follow up: Private Physician; When: Upon discharge from the Emergency Department; Reason: If symptoms return, Recheck today's complaints, Continuance of care. Problem is new. Symptoms have improved. tw4
[2018-10-19 22:57] VITALS: BP 151/92; O2SAT 99
[2018-10-19 22:58] VITALS: TEMP 99
== END 2018-10-19 22:13 | disposition home or self-care (01) ==
LOC: ER 19:23
DX: H60.92 Unspecified otitis externa, left ear (principal); Z88.1 Allergy status to other antibiotic agents
CPT/HCPCS: 81003; 81025; 87070; 87081; 87086; 87088; 87804; 99283

== ENCOUNTER 2019-01-01 11:29 | Emergency (ER) | payer SELFPAY ==
[2019-01-01 13:02] LABS: Absolute Lymphocytes (CBC) 2.3 K/uL (0.7-4.9); Basophils % 0.8 % (0-1.3); Hematocrit 35.8 % (36.0-45.0); Lymphocytes % 35.4 % (15.3-44.8); RBC Red Blood Cell Count 4.48 M/uL (3.86-4.86)
[2019-01-01] MEDS ORDERED: NA CHLORIDE 0.9% 1,000 ML ONE (13:23)
[2019-01-01 13:28] LABS: ALT/SGPT 59 U/L (12-78); AST/SGOT 26 U/L (15-37); Albumin 3.8 g/dL (3.4-5.0); Alkaline Phosphatase 59 U/L (45-117); BUN Blood Urea Nitrogen 6 mg/dL (7-18); Bicarbonate 28 mmol/L (21-32); Bilirubin Direct 0.1 mg/dL (0-0.2); Bilirubin Total 0.5 mg/dL (0.2-1.0); Glucose Level 103 mg/dL (74-106); Lipase 56 U/L (73-393); Potassium 3.8 mmol/L (3.5-5.1); Sodium Level 139 mmol/L (136-145)
--- NOTE | 2019-01-01 13:55 | RAD REPORT ---
EXAM DESCRIPTION: CTAbdomen Pelvis W Contrast - 01/01/2019 1:49 pm CLINICAL HISTORY: Abdominal pain. lower abd pain, rule out appendicitis;Abd pain COMPARISON: CT ABD PELVIS W CONTRAST dated 02/08/2014; CT ABD PELVIS W CONTRAST dated 07/26/2012 TECHNIQUE: Biphasic CT imaging of the abdomen and pelvis was performed with 100 ml non-ionic IV cont rast. All CT scans are performed using dose optimization technique as appropriate and may include automated exposure control or mA/KV adjustment according to patient size. FINDINGS: The lung bases are clear. The liver demonstrates fatty liver. The spleen, pancreas, adrenal glands and kidneys are within jose david l limits. No bowel obstruction, free air, free fluid or abscess. The appendix is normal. No evidence of signi ficant lymphadenopathy. No suspicious bony findings. IMPRESSION: No acute intra-abdominal or pelvic finding.
[2019-01-01 14:27] LABS: Urine Blood NEGATIVE (NEG); Urine Glucose NEGATIVE (NEG); Urine Protein NEGATIVE (NEG)
--- NOTE | 2019-01-01 14:38 | EDPHYS ---
Physician Documentation [facility] Name: Tejas Tomlinson Age: 23 yrs Sex: Female : 1995 Arrival Date: 01/01/2019 Time: 11:31 Bed 8 Private MD: None, None ED Physician Rick Mathur HPI: 01/01 13:24 This 23 yrs old Female presents to ER via Ambulatory with complaints of rn Abdominal Pain. 13:24 The patient presents with abdominal pain in the periumbilical area. Onset: The rn symptoms/episode began/occurred last night. The symptoms radiate to RLQ. Associated signs and symptoms: Pertinent positives: nausea, Pertinent negatives: blood in stools, chest pain, constipation, diarrhea, dysuria, fever, palpitations, shortness of breath, vaginal discharge, vomiting, vomiting blood. The symptoms are described as crampy. Modifying factors: The symptoms are alleviated by nothing, the symptoms are aggravated by touching the area. Severity of pain: At its worst the pain was moderate in the emergency department the pain has improved. The patient has not experienced similar symptoms in the past. The patient has not recently seen a physician. Reports mid abd pain that began last night, assoc with nausea, no vomiting/diarrhea/constipation. No blood in stool. No urinary or vaginal complaints. No trauma. Intermittent, no fever. . 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 - Social history:: Smoking status: . - Ebola Screening: : Patient denies travel to an Ebola-affected area in the 21 days before illness onset. - Family history:: not pertinent. - Hospitalizations: : No recent hospitalization is reported. ROS: 13:24 Constitutional: Negative for fever, chills, and weight loss, Eyes: Negative for injury, rn pain, redness, and discharge, Cardiovascular: Negative for chest pain, palpitations, and edema, Respiratory: Negative for shortness of breath, cough, wheezing, and pleuritic chest pain, Abdomen/GI: + abd pain, negative for nausea/vomiting/diarrhea Back: Negative for injury and pain, : Negative for injury, bleeding, discharge, and swelling, MS/Extremity: Negative for injury and deformity, Skin: Negative for injury, rash, and discoloration, Neuro: Negative for headache, weakness, numbness, tingling, and seizure. Exam: 13:24 Constitutional: This is a well developed, well nourished patient who is awake, alert, rn and in no acute distress. Head/Face: Normocephalic, atraumatic. ENT: MMM Cardiovascular: Tachycardic, regular. No pulse deficits. Respiratory: No increased work of breathing, no retractions or nasal flaring. Abdomen/GI: Soft, + periumbilical tenderness, no rebound/masses. MS/ Extremity: Pulses equal, no cyanosis. Neurovascular intact. Full, normal range of motion. Equal circumference. Neuro: Awake and alert, GCS 15, oriented to person, place, time, and situation. Cranial nerves II-XII grossly intact. Motor strength 5/5 in all extremities. Sensory grossly intact. Cerebellar exam normal. Vital Signs: 11:34 BP 150 / 88; Pulse 106; Resp 17; Temp 97.4(TE); Pulse Ox 97% on R/A; Weight 131.54 kg tw2 (R); Height 5 ft. 2 in. (157.48 cm) (R); Pain 5/10; 12:30 BP 148 / 89; Pulse 88; Resp 18; Pulse Ox 99% on R/A; aj1 13:30 BP 122 / 81; Pulse 75; Resp 18; Pulse Ox 99% on R/A; aj1 14:30 BP 122 / 70; Pulse 77; Resp 18; Pulse Ox 99% on R/A; aj1 15:30 BP 105 / 58; Pulse 77; Resp 18; Pulse Ox 97% on R/A; aj1 11:34 Body Mass Index 53.04 (131.54 kg, 157.48 cm) tw2 MDM: 12:18 Patient medically screened. rn 14:35 Differential diagnosis: appendicitis, diverticulitis, Ectopic , Endometriosis, rn non-specific abd pain, Ureterolithiasis, urinary tract infection. Data reviewed: vital signs, nurses notes, lab test result(s), radiologic studies, CT scan, and as a result, I will discharge patient. Counseling: I had a detailed discussion with the patient and/or guardian regarding: the historical points, exam findings, and any diagnostic results supporting the discharge/admit diagnosis, lab results, radiology results, the need for outpatient follow up, to return to the emergency department if symptoms worsen or persist or if there are any questions or concerns that arise at home. Special discussion: Based on the patient's Hx, exam, and Dx evaluation, there is no indication for emergent surgery or inpatient Tx. It is understood by the patient/guardian that if the Sx's persist or worsen they need to return immediately for re-evaluation. I discussed with the patient/guardian in detail that at this point there is no indication for admission to the hospital. It is understood, however, that if the symptoms persist or worsen the patient needs to return immediately for re-evaluation. ED course: CT abdomen no acute findings, UA neg, other labs normal. Will dc home with pcp f/u and return precautions.. 01/01 12:37 Order name: Basic Metabolic Panel; Complete Time: 14:00 rn 01/01 12:37 Order name: CBC with Diff; Complete Time: 14: rn 01/01 12:37 Order name: Creatinine for Radiology; Complete Time: 14:00 rn 01/01 12:37 Order name: Hepatic Function; Complete Time: 14:00 rn 01/01 12:37 Order name: Lipase; Complete Time: 14: rn 01/01 12:37 Order name: IV Saline Lock; Complete Time: 12:54 rn 01/01 12:37 Order name: Labs collected and sent; Complete Time: 12:54 rn 01/01 12:37 Order name: CT Abd/Pelvis - IV Contrast Only; Complete Time: 14:00 rn 01/01 12:37 Order name: Urine Test (obtain specimen); Complete Time: 12:54 rn 01/01 12:37 Order name: Urine Dipstick-Ancillary (obtain specimen); Complete Time: 13:07 rn 01/01 13:25 Order name: Urine Dipstick--Ancillary (enter results); Complete Time: 14:35 bd 01/01 13:25 Order name: Urine --Ancillary (enter results); Complete Time: 14:35 bd Administered Medications: 13:24 Drug: NS 0.9% 1000 ml Route: IV; Rate: 1000 ml; Site: right forearm; aj1 15:54 Follow up: IV Status: Completed infusion; IV Intake: 1000ml aj1 Disposition: 01/01/19 14:37 Discharged to Home. Impression: Lower abdominal pain, unspecified. - Condition is Stable. - Discharge Instructions: Abdominal Pain, Adult, Pain Without a Known Cause. - Work release form, Medication Reconciliation Form, Thank You Letter, Antibiotic Education, Prescription Opioid Use form. - Follow up: Private Physician; When: As needed; Reason: Recheck today's complaints, Re-evaluation by your physician. - Problem is new. - Symptoms have improved. Signatures: Dispatcher [employer] [facility] Kirstin Griffith RN RN aj1 Rick Mathur MD MD rn Wise, Tara, RN RN tw2 Corrections: (The following items were deleted from the chart) 13:27 13:24 Constitutional: This is a well developed, well nourished patient who is awake, rn alert, and in no acute distress. Head/Face: Normocephalic, atraumatic. ENT: MMM Cardiovascular: Regular rate and rhythm. No pulse deficits. Respiratory: No increased work of breathing, no retractions or nasal flaring. Abdomen/GI: Soft, + periumbilical tenderness, no rebound/masses. MS/ Extremity: Pulses equal, no cyanosis. Neurovascular intact. Full, normal range of motion. Equal circumference. Neuro: Awake and alert, GCS 15, oriented to person, place, time, and situation. Cranial nerves II-XII grossly intact. Motor strength 5/5 in all extremities. Sensory grossly intact. Cerebellar exam normal. rn 16:00 14:37 01/01/2019 14:37 Discharged to Home. Impression: Lower abdominal pain, aj1 unspecified. Condition is Stable. Forms are Medication Reconciliation Form, Thank You Letter, Antibiotic Education, Prescription Opioid Use. Follow up: Private Physician; When: As needed; Reason: Recheck today's complaints, Re-evaluation by your physician. Problem is new. Symptoms have improved. rn
--- NOTE | 2019-01-01 14:38 | ER ---
Nurse's Notes [facility] Name: Tejas Tomlinson Age: 23 yrs Sex: Female : 1995 Arrival Date: 01/01/2019 Time: 11:31 Bed 8 Private MD: None, None Diagnosis: Lower abdominal pain, unspecified Presentation: 01/01 11:33 Presenting complaint: Patient states: i am having a sharp cramping pain in my lower tw2 stomach below my abdomen and it shoots to the right side, little bit of nausea, it started last night. Transition of care: patient was not received from another setting of care. Onset of symptoms was January 01, 2019. Risk Assessment: Do you want to hurt yourself or someone else? Patient reports no desire to harm self or others. Initial Sepsis Screen: Does the patient meet any 2 criteria? No. Patient's initial sepsis screen is negative. Does the patient have a suspected source of infection? No. Patient's initial sepsis screen is negative. Care prior to arrival: None. 11:33 Method Of Arrival: Ambulatory tw2 11:33 Acuity: JONATAN 3 tw2 Triage Assessment: 11:35 General: Appears in no apparent distress. obese, Behavior is calm, cooperative, tw2 appropriate for age. Pain: Complains of pain in abdomen. GI: Reports lower abdominal pain, nausea. 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 - Social history:: Smoking status: . - Ebola Screening: : Patient denies travel to an Ebola-affected area in the 21 days before illness onset. - Family history:: not pertinent. - Hospitalizations: : No recent hospitalization is reported. Screenin:35 Abuse screen: Denies threats or abuse. Denies injuries from another. Nutritional aj1 screening: No deficits noted. Tuberculosis screening: No symptoms or risk factors identified. 14:19 Fall Risk None identified. tw2 Assessment: 13:35 General: Appears in no apparent distress. comfortable, Behavior is calm, cooperative, aj1 appropriate for age. Pain: Complains of pain in suprapubic area, right lower quadrant and left lower quadrant Pain currently is 6 out of 10 on a pain scale. at worst was 10 out of 10 on a pain scale. Quality of pain is described as pressure, sharp, Pain began 1 day ago. Is continuous, Alleviated by rest. Neuro: Level of Consciousness is awake, alert, obeys commands, Oriented to person, place, time, situation. Cardiovascular: Patient's skin is warm and dry. Respiratory: Airway is patent Respiratory effort is even, unlabored, Respiratory pattern is regular, symmetrical. GI: Abdomen is round non-distended, Last BM was December 31, 2018. Bowel sounds present X 4 quads. Abd is soft Abdomen is tender to palpation in suprapubic area, right lower quadrant and left lower quadrant Reports lower abdominal pain. : No signs and/or symptoms were reported regarding the genitourinary system. EENT: No signs and/or symptoms were reported regarding the EENT system. Derm: No signs and/or symptoms reported regarding the dermatologic system. Musculoskeletal: No signs and/or symptoms reported regarding the musculoskeletal system. 14:35 Reassessment: Patient appears in no apparent distress at this time. No changes from aj1 previously documented assessment. Patient and/or family updated on plan of care and expected duration. Pain level reassessed. Patient is alert, oriented x 3, equal unlabored respirations, skin warm/dry/pink. 15:35 Reassessment: Patient appears in no apparent distress at this time. No changes from aj1 previously documented assessment. Patient and/or family updated on plan of care and expected duration. Pain level reassessed. Patient is alert, oriented x 3, equal unlabored respirations, skin warm/dry/pink. Vital Signs: 11:34 BP 150 / 88; Pulse 106; Resp 17; Temp 97.4(TE); Pulse Ox 97% on R/A; Weight 131.54 kg tw2 (R); Height 5 ft. 2 in. (157.48 cm) (R); Pain 5/10; 12:30 BP 148 / 89; Pulse 88; Resp 18; Pulse Ox 99% on R/A; aj1 13:30 BP 122 / 81; Pulse 75; Resp 18; Pulse Ox 99% on R/A; aj1 14:30 BP 122 / 70; Pulse 77; Resp 18; Pulse Ox 99% on R/A; aj1 15:30 BP 105 / 58; Pulse 77; Resp 18; Pulse Ox 97% on R/A; aj1 11:34 Body Mass Index 53.04 (131.54 kg, 157.48 cm) tw2 ED Course: 11:31 Patient arrived in ED. mr 11:32 None, None is Private Physician. mr 11:34 Triage completed. tw2 11:36 Arm band placed on. tw2 12:18 Kirstin Griffith, RN is Primary Nurse. aj1 12:18 Rick Mathur MD is Attending Physician. rn 12:54 Initial lab(s) drawn, by sd, sent to lab. Inserted saline lock: 20 gauge in right aj1 forearm, using aseptic technique. Blood collected. 13:07 Urine collected: clean catch specimen, clear. ms 13:35 Patient has correct armband on for positive identification. Bed in low position. Call aj1 light in reach. 13:49 CT Abd/Pelvis - IV Contrast Only In Process Unspecified. EDMS 15:58 No provider procedures requiring assistance completed. IV discontinued, intact, aj1 bleeding controlled, No redness/swelling at site. Pressure dressing applied. Administered Medications: 13:24 Drug: NS 0.9% 1000 ml Route: IV; Rate: 1000 ml; Site: right forearm; aj1 15:54 Follow up: IV Status: Completed infusion; IV Intake: 1000ml aj1 Intake: 15:54 IV: 1000ml; Total: 1000ml. aj1 Outcome: 14:37 Discharge ordered by . rn 15:59 Discharged to home ambulatory. aj1 15:59 Condition: good 15:59 Discharge instructions given to patient, Instructed on discharge instructions, follow up and referral plans. 16:00 Patient left the ED. aj1 Signatures: Dispatcher [employer] EDMS Kirstin Griffith, RN ESTELLE aj1 Hall[place] Kateryna FreemanKari ms Rick Mathur MD MD rn Wise, Tara, RN RN tw2
[2019-01-01 16:46] VITALS: TEMP 97.4
[2019-01-01 16:50] VITALS: BP 105/58; O2SAT 97
== END 2019-01-01 16:00 | disposition home or self-care (01) ==
LOC: ER 11:29
DX: R10.30 Lower abdominal pain, unspecified (principal); Z88.1 Allergy status to other antibiotic agents
CPT/HCPCS: 36415; 74177; 80048; 80076; 81003; 81025; 83690; 85025; 96360; 96361; 99284; J7030

== ENCOUNTER 2019-08-27 18:06 | Emergency (ER) | payer SELFPAY ==
--- OUTSIDE RECORDS SUMMARY | 2019-08-27 18:09 | XMS REPORT | Continuity of Care Document ---
:1995 Author Organization [facility] t Address [address] [place] [address] Dr. Sandhu [address] [place] [id number] Care Team Providers Name Role Phone Unavailable Unavailable Unavailable Problems This patient has no known problems. Allergies, Adverse Reactions, Alerts This patient has no known allergies or adverse reactions. Medications This patient has no known medications. Procedures This patient has no known procedures. Results This patient has no known results.
--- NOTE | 2019-08-27 18:49 | ER ---
Nurse's Notes [facility] Name: Tejas Tomlinson Age: 23 yrs Sex: Female : 1995 Arrival Date: 08/27/2019 Time: 18:08 Bed 12 Private MD: Diagnosis: Acute contact otitis externa, left ear Presentation: 08/26 18:13 Chief complaint: Patient states: L ear pain since Tuesday night. Denies drainage from ca1 ear. Coronavirus screen: Proceed with normal triage. Patient denies a cough. Patient denies shortness of breath or difficulty breathing. Patient denies measured and/or subjective temperature greater than 100.4F prior to today's visit. Patient denies travel on a cruise ship or to a country the [facility] currently lists as an affected area. Patient denies contact with known and/or suspected case of COVID-19. Ebola Screen: Patient negative for fever greater than or equal to 101.5 degrees Fahrenheit, and additional compatible Ebola Virus Disease symptoms Patient denies exposure to infectious person. Patient denies travel to an Ebola-affected area in the 21 days before illness onset. No symptoms or risks identified at this time. Initial Sepsis Screen: Does the patient meet any 2 criteria? No. Patient's initial sepsis screen is negative. Does the patient have a suspected source of infection? No. Patient's initial sepsis screen is negative. Risk Assessment: Do you want to hurt yourself or someone else? Patient reports no desire to harm self or others. Onset of symptoms was August 27, 2019. 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 - Social history:: Smoking status: Patient denies any tobacco usage or history of. Screenin:16 Abuse screen: Denies threats or abuse. Denies injuries from another. Nutritional ca1 screening: No deficits noted. Tuberculosis screening: No symptoms or risk factors identified. Fall Risk None identified. Assessment: 18:16 General: Appears in no apparent distress. comfortable, Behavior is calm, appropriate ca1 for age. Pain: Complains of pain in left ear Pain currently is 10 out of 10 on a pain scale. Neuro: Level of Consciousness is awake, alert, obeys commands, Oriented to person, place, time, situation. EENT: Tympanic membrane not visualized left ear Ear canal clear on left ear and right ear. Derm: Skin is intact, is healthy with good turgor, Skin is pink, warm \T\ dry. Musculoskeletal: Circulation, motion, and sensation intact. Capillary refill < 3 seconds. Vital Signs: 18:13 BP 129 / 70; Pulse 97; Resp 15 S; Temp 97.6(TE); Pulse Ox 100% on R/A; Weight 129.27 kg ca1 (R); Height 5 ft. 2 in. (157.48 cm) (R); Pain 10/10; 18:13 Body Mass Index 52.13 (129.27 kg, 157.48 cm) ca1 ED Course: 18:08 Patient arrived in ED. ag5 18:14 Triage completed. ca1 18:15 Arm band placed on right wrist. ca1 18:16 Yolanda Covington RN is Primary Nurse. ca1 18:16 Patient has correct armband on for positive identification. ca1 18:18 Felicia Davis FNP-C is PHCP. snw 18:18 Ehsan Fischer MD is Attending Physician. snw Administered Medications: 19:30 Drug: [place] 5 mg-325 mg 1 tabs Route: PO; sg 19:30 Drug: Cortisporin Drops 4 drops Route: Otic; Site: left ear; sg Outcome: 18:48 Discharge ordered by . snw 19:31 Patient left the ED. sg Signatures: Mario Pfeiffer RN RN sg Felicia Davis FNP-C IN [employer]-Csnw Yolanda Covington RN RN ca1 Mateusz Lew ag5
--- NOTE | 2019-08-27 18:49 | EDPHYS ---
Physician Documentation [facility] Name: Tejas Tomlinson Age: 23 yrs Sex: Female : 1995 Arrival Date: 08/27/2019 Time: 18:08 Bed 12 Private MD: ED Physician Ehsan Fischer HPI: 08/26 18:47 This 23 yrs old Female presents to ER via Ambulatory with complaints of Ear snw Pain. 18:47 The patient presents with pain, swelling. The complaints affect the left ear. Onset: snw The symptoms/episode began/occurred suddenly, yesterday. Modifying factors: The symptoms are alleviated by nothing, the symptoms are aggravated by pulling on ears, touching. Severity of symptoms: At their worst the symptoms were moderate in the emergency department the symptoms are unchanged. The patient has not experienced similar symptoms in the past. It is unknown whether or not the patient has recently seen a physician. 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 - Social history:: Smoking status: Patient denies any tobacco usage or history of. ROS: 18:45 Constitutional: Negative for fever, chills, and weight loss, Eyes: Negative for injury, snw pain, redness, and discharge, Neck: Negative for injury, pain, and swelling, Cardiovascular: Negative for chest pain, palpitations, and edema, Respiratory: Negative for shortness of breath, cough, wheezing, and pleuritic chest pain, Abdomen/GI: Negative for abdominal pain, nausea, vomiting, diarrhea, and constipation, Back: Negative for injury and pain, : Negative for injury, bleeding, discharge, and swelling, MS/Extremity: Negative for injury and deformity, Skin: Negative for injury, rash, and discoloration, Neuro: Negative for headache, weakness, numbness, tingling, and seizure, Psych: Negative for depression, anxiety, suicide ideation, homicidal ideation, and hallucinations. 18:45 ENT: Positive for ear pain. Exam: 18:43 Constitutional: This is a well developed, well nourished patient who is awake, alert, snw and in no acute distress. Head/Face: Normocephalic, atraumatic. Eyes: Pupils equal round and reactive to light, extra-ocular motions intact. Lids and lashes normal. Conjunctiva and sclera are non-icteric and not injected. Cornea within normal limits. Periorbital areas with no swelling, redness, or edema. ENT: Nares patent. No nasal discharge, no septal abnormalities noted. Tympanic membrane is normal to right, left TM not visible second to edema in external auditory canal, + tug test. Oropharynx with no redness, swelling, or masses, exudates, or evidence of obstruction, uvula midline. Mucous membranes moist. Neck: Trachea midline, no thyromegaly or masses palpated, and no cervical lymphadenopathy. Supple, full range of motion without nuchal rigidity, or vertebral point tenderness. No Meningismus. Chest/axilla: Normal chest wall appearance and motion. Nontender with no deformity. No lesions are appreciated. Cardiovascular: Regular rate and rhythm with a normal S1 and S2. No gallops, murmurs, or rubs. Normal PMI, no JVD. No pulse deficits. Respiratory: Lungs have equal breath sounds bilaterally, clear to auscultation and percussion. No rales, rhonchi or wheezes noted. No increased work of breathing, no retractions or nasal flaring. Abdomen/GI: Soft, non-tender, with normal bowel sounds. No distension or tympany. No guarding or rebound. No evidence of tenderness throughout. Back: No spinal tenderness. No costovertebral tenderness. Full range of motion. Skin: Warm, dry with normal turgor. Normal color with no rashes, no lesions, and no evidence of cellulitis. MS/ Extremity: Pulses equal, no cyanosis. Neurovascular intact. Full, normal range of motion. Neuro: Awake and alert, GCS 15, oriented to person, place, time, and situation. Cranial nerves II-XII grossly intact. Motor strength 5/5 in all extremities. Sensory grossly intact. Cerebellar exam normal. Normal gait. Psych: Awake, alert, with orientation to person, place and time. Behavior, mood, and affect are within normal limits. Vital Signs: 18:13 BP 129 / 70; Pulse 97; Resp 15 S; Temp 97.6(TE); Pulse Ox 100% on R/A; Weight 129.27 kg ca1 (R); Height 5 ft. 2 in. (157.48 cm) (R); Pain 10/10; 18:13 Body Mass Index 52.13 (129.27 kg, 157.48 cm) ca1 MDM: 18:19 Patient medically screened. snw 18:45 Data reviewed: vital signs. Data reviewed: nurses notes. Data interpreted: Pulse snw oximetry: on room air is 100 %. Interpretation: normal. Counseling: I had a detailed discussion with the patient and/or guardian regarding: the historical points, exam findings, and any diagnostic results supporting the discharge/admit diagnosis, the need for outpatient follow up, for definitive care, to return to the emergency department if symptoms worsen or persist or if there are any questions or concerns that arise at home. Response to treatment: There is no appreciated change of the patient's symptoms at this time. Special discussion: Based on the history and exam findings, there is no indication for further emergent testing or inpatient evaluation. I discussed with the patient/guardian the need to see the ENT specialist for further evaluation of the symptoms. I discussed with the patient/guardian the need to see the primary care provider for further evaluation of the symptoms. Administered Medications: 19:30 Drug: [place] 5 mg-325 mg 1 tabs Route: PO; sg 19:30 Drug: Cortisporin Drops 4 drops Route: Otic; Site: left ear; sg Disposition: 08/27/19 18:48 Discharged to Home. Impression: Acute contact otitis externa, left ear. - Condition is Stable. - Discharge Instructions: Ear Drops, Adult, Otitis Externa. - Prescriptions for Mobic 7.5 mg Oral Tablet - take 1 tablet by ORAL route once daily take with food; 20 tablet. Ciprodex 0.3- 0.1 % Otic Drops, Suspension - instill 4 drop by OTIC route every 12 hours for 7 days , for ears ONLY; 1 Container. - Work release form, Medication Reconciliation Form, Thank You Letter, Antibiotic Education, Prescription Opioid Use form. - Follow up: Emergency Department; When: As needed; Reason: Worsening of condition. Follow up: Private Physician; When: 2 - 3 days; Reason: Recheck today's complaints, Continuance of care, Re-evaluation by your physician. Addendum: 09/02/2019 02:25 Co-signature as Attending Physician, Ehsan Fischer MD. m a2 Signatures: Mario Pfeiffer RN RN sg Felicia Davis, FERRYBOAT DECKHAND-C FERR[employer] DECKHAND-Csnw Ehsan Fischer MD MD ma2 Yolanda Covington RN RN ca1 Corrections: (The following items were deleted from the chart) 08/26 19:31 18:48 08/27/2019 18:48 Discharged to Home. Impression: Acute contact otitis externa, sg left ear. Condition is Stable. Forms are Medication Reconciliation Form, Thank You Letter, Antibiotic Education, Prescription Opioid Use. Follow up: Emergency Department; When: As needed; Reason: Worsening of condition. Follow up: Private Physician; When: 2 - 3 days; Reason: Recheck today's complaints, Continuance of care, Re-evaluation by your physician. snw
[2019-08-27] MEDS ORDERED: NEOMY/POLY/HC 1% OTIC DROPS ONE (19:33)
[2019-08-27] MEDS ORDERED: HYDROCODONE/APAP 5/325 MG TAB ONE (19:33)
[2019-08-27 19:44] VITALS: BP 129/70; TEMP 97.6; O2SAT 100
== END 2019-08-27 19:31 | disposition home or self-care (01) ==
LOC: ER 18:06
DX: H60.532 Acute contact otitis externa, left ear (principal); Z88.1 Allergy status to other antibiotic agents
CPT/HCPCS: 99282